=== PATIENT | female | born 1955 | race Caucasian/White ===

== ENCOUNTER 2016-11-05 14:01 | Emergency (ER) | payer OTHER ==
[~2016-11-05] VITALS: Ht 165.1 cm; Wt 63.0 kg
[~2016-11-05 14:01] MED LIST: CITA20TA5 PO; Cefpodoxime Proxetil PO; MELA10TA PO; PRED-220 PO; TRIA1TAB5 PO
[2016-11-05 14:07] VITALS: BP 165/99
[2016-11-05] MEDS ORDERED: BUPIVACAINE 0.5% 50 ML VIAL. IJ ONE (14:30)
[2016-11-05] MEDS ORDERED: HYDR-971 PO (14:53)
[2016-11-05] MEDS ORDERED: CEPH500T PO (14:53)
--- NOTE | 2016-11-05 14:54 | PHYS DOC ---
Past Medical History Past Medical History: Bipolar, Depression, Hypertension, Pneumonia Past Surgical History: Other Additional Past Surgical Histo: R rotator cuff Alcohol Use: None Drug Use: Marijuana, Other Social History Narrative: denies 11/05/16 Adult General Chief Complaint Chief Complaint: THUMB HPI HPI Patient is a 61 year old female with history of hypertension bipolar and depression who presents today requesting we remove her left thumb nail. Patient states she got injured at work on October 12, 2016. She has been following up with [facility] She states the nail on the left thumb is barely attached to the nail bed and has been catching on things that she can not use her left thumb, she is left handed and would like it removed. She states she has an appointment with [email or web address] next week but she can not wait until then. Patient states the [facility] had asked her to cut the nail back which she refused. Patient states she does have a fracture of the left thumb from the injury that was left to heal on its own she states she was provided a splint. Review of Systems Review of Systems Constitutional: Denies fever or chills [] Musculoskeletal: Left thumb nail removal request Integument: Denies rash or skin lesions [] Neurologic: Denies headache, focal weakness or sensory changes [] Endocrine: Denies polyuria or polydipsia [] Current Medications Current Medications Current Medications Medications (Trade) Dose Ordered Sig/Gonzales Start Time Stop Time Status Last Admin Dose Admin Bupivacaine HCl (Marcaine 0.5%) 50 ml 1X ONCE 11/05/16 14:30 11/05/16 14:31 DC Allergies Allergies Allergies Coded Allergies Type Severity Reaction Last Updated Verified No Known Drug Allergies 09/27/14 No Physical Exam Physical Exam Constitutional: Well developed, well nourished, no acute distress, non-toxic appearance. [] HENT: Normocephalic, atraumatic, bilateral external ears normal, oropharynx moist, no oral exudates, nose normal. [] Eyes: PERRLA, EOMI, conjunctiva normal, no discharge. [] Neck: Normal range of motion, no tenderness, supple, no stridor. [] Cardiovascular:Heart rate regular rhythm, no murmur [] Lungs & Thorax: Bilateral breath sounds clear to auscultation [] Abdomen: Bowel sounds normal, soft, no tenderness, no masses, no pulsatile masses. [] Skin: Left thumb nail is barely attached on the medial aspect of the thumb's nail bed. Most of the old is is removed completely from the nail bed. There is a new nail growing underneath the old nail. The new nail is approximately 1/3 out of the skin. Full range of motion to the left thumb including flexion and extension. +2 left radial pulse, adequate, radial sensation to the left thumb. Cap refill less than 2 seconds the left thumb Back: No tenderness, no CVA tenderness. [] Extremities: No tenderness, no cyanosis, no clubbing, ROM intact, no edema. [] Neurologic: Alert and oriented X 3, normal motor function, normal sensory function, no focal deficits noted. [] Psychologic: Affect normal, judgement normal, mood normal. [] Current Patient Data Vital Signs Vital Signs Date Time Temp Pulse Resp B/P (MAP) Pulse Ox O2 Delivery O2 Flow Rate FiO2 11/05/16 14:07 98.2 85 20 95 Room Air 98.2 EKG EKG [] Radiology/Procedures Radiology/Procedures Indication: Left thumb nail removal Procedure: Left hand was placed in appropriate position. The left thumb was cleaned with 200 ML of normal saline and 30 mL of Betadine. 0.5% of bupivacaine was used to perform a digital block successfully. The nail was successfully pulled out with Raya's forceps, the area was covered with nonstick dressing and foam splint was applied by me, neurovascular exam done by me is normal, cap refill less than 2 seconds. The patient tolerated the procedure well Complications:none Course & Med Decision Making Course & Med Decision Making Pertinent Labs and Imaging studies reviewed. (See chart for details) Patient is in the ED with request for nail removal from her left thumb after an injury on October 12, 2016 at work. Patient has been following up with [employer] at work. She has a f/u appointment next week. Patient states she can't wait until next week to have the nail removed. The old finger nail is barely attached to the nail bed. The left thumb has a new nail approximately 1/3 grown. I went ahead and removed the old nail which was barely attached to the skin. See procedure note. Tetanus is up-to-date. Discharged with cephalexin prophylaxis. Follow up with [employer] comp next week. Dragon Disclaimer Dragon Disclaimer This electronic medical record was generated, in whole or in part, using a voice recognition dictation system. Departure Departure Impression: Primary Impression: Nail avulsion, finger Disposition: 01 HOME, SELF-CARE Condition: STABLE Referrals: BENIGNO PARRA MD (PCP) follow up with your work man's comp. doctor next week Patient Instructions: Nail Avulsion Injury Additional Instructions: We removed the left thumb nail that was barely hanging on. You do have a new nail growing. Keep the area clean and dry. We put you on antibiotics prophylaxis. Take them as prescribed. Follow-up with the workman comp doctor next week. Scripts Cephalexin (CEPHALEXIN) 500 Mg Tablet 1 TAB PO QID, #40 TAB Prov: GEMINI KIDD APRN 11/05/16 Hydrocodone/Apap 5-325 (NORCO 5-325 TABLET) 1 Each Tablet 1 TAB PO Q4-6HRS Y for PAIN, #20 TAB Prov: GEMINI KIDD APRN 11/05/16 Problem Qualifiers Primary Impression: Nail avulsion, finger Encounter type: initial encounter Qualified Codes: S61.309A - Unspecified open wound of unspecified finger with damage to nail, initial encounter GEMINI KIDD APRN Nov 05, 2016 14:54
== END 2016-11-05 14:57 | disposition home or self-care (01) ==
LOC: ER 14:01
DX: S61.102A Unspecified open wound of left thumb with damage to nail, initial encounter (principal); F12.10 Cannabis abuse, uncomplicated; I10 Essential (primary) hypertension; F31.9 Bipolar disorder, unspecified; X58.XXXA Exposure to other specified factors, initial encounter; Y93.89 Activity, other specified; Y92.69 Other specified industrial and construction area as the place of occurrence of the external cause; Y99.8 Other external cause status
CPT/HCPCS: 11730; 99285; J3490

== ENCOUNTER 2018-12-01 08:59 | Inpatient (IN) | payer SELFPAY ==
[~2018-12-01] VITALS: Ht 165.1 cm; Wt 71.0 kg
[2018-12-01] VITALS (18 sets, daily range): BP systolic 107–139; BP diastolic 65–88
[~2018-12-01 08:59] MED LIST changes: +ALPR0.5T PO; +CEPH500T PO; +CITA10TA8 PO; -CITA20TA5 PO; +CITA20TA6 PO; +CYCL10TA2 PO; +DILT180C2 PO; +HYDR-3164 PO; +L.AC1CAP6 PO; +LEVO500T59 PO; +PRED20TA PO; +WARF-31 PO
[2018-12-01] MEDS ORDERED: dilTIAZem INJ 125 MG in IV DEXTROSE 5% 100ML 100 ML IV ONE (09:30)
[2018-12-01] MEDS ORDERED: ONDANSETRON PF 4 MG/2 ML VIAL. IM ONE (09:30)
[2018-12-01] MEDS ORDERED: dilTIAZem IV PUSH 25 MG/5 ML VIAL IVP ONE (09:30)
[2018-12-01] MEDS ORDERED: fentaNYL PF VIAL 100 MCG/2 ML VIAL IV ONE ×3 (09:30→10:30)
--- NOTE | 2018-12-01 09:41 | RAD ---
Examination: PORTABLE CHEST 1V History: Abdominal pain Comparison/Correlation: None Findings: Portable upright frontal view chest was obtained. Heart size is borderline but this is probably technique related. No pneumothorax. Subtle interstitial thickening of the lung decker diffusely is noted. No focal consolidation. No acute bony process. No subdiaphragmatic extraluminal gas. Impression: Decreased interstitial thickening of the lung decker is notable since the prior exam. No focal infiltrate. Electronically signed by: Wilbert Webb MD (12/01/2018 9:38 AM) [id number]
[2018-12-01 09:42] LABS: BASO # 0.1 x10^3/uL (0.0-0.2); BASO % 0 % (0-3); EOS % 0 % (0-3); HEMATOCRIT 55.2 % (36.0-47.0); HEMOGLOBIN 18.8 g/dL (12.0-15.5); LYMPH % 5 % (24-48); MEAN CORPUSCULAR HEMOGLOBIN 30 pg (25-35); MEAN CORPUSCULAR HGB CONC 34 g/dL (31-37); MEAN CORPUSCULAR VOLUME 89 fL (79-100); MONO # 1.9 x10^3/uL (0.0-1.1); MONO % 10 % (0-9); NEUT # 15.7 x10^3/uL (1.8-7.7); NEUT % 84 % (31-73); PLATELET COUNT 400 x10^3/uL (140-400); RED BLOOD COUNT 6.23 x10^6/uL (3.50-5.40); WHITE BLOOD COUNT 18.7 x10^3/uL (4.0-11.0)
[2018-12-01 09:51] LABS: CALCIUM 9.4 mg/dL (8.5-10.1); CREATININE 0.8 mg/dL (0.6-1.0); GFR 72.4; POTASSIUM 3.7 mmol/L (3.5-5.1)
[2018-12-01 09:57] LABS: PROTHROMBIN TIME PATIENT 32.6 SEC (11.7-14.0)
--- NOTE | 2018-12-01 09:57 | PHYS DOC ---
Past Medical History Past Medical History: A-Fib, CHF, COPD Past Surgical History: No Surgical History Additional Past Surgical Histo: R rotator cuff Additional Information: 2-3 CIGS/DAY Alcohol Use: None Drug Use: Marijuana Adult General Chief Complaint Chief Complaint: ABDOMINAL PAIN [facility] HPI Patient is a 63 year old female with history of atrial fibrillation who brought in by EMS because of abdominal pain. Patient complaining of constant epigastric sharp pain since yesterday and rated her pain 10 over 10 associated with nausea. Patient denies chest pain, palpitation, vomiting and diarrhea, fever and chills. Patient complaining of decrease of urine output. Patient is anxious and a poor historian. Review of Systems Review of Systems Constitutional: Denies fever or chills [] Eyes: Denies change in visual acuity, redness, or eye pain [] HENT: Denies nasal congestion or sore throat [] Respiratory: Denies cough or shortness of breath [] Cardiovascular: No additional information not addressed in HPI [] GI: Reports abdominal pain, nausea, denies vomiting, bloody stools or diarrhea [] : Denies dysuria or hematuria [] Musculoskeletal: Denies back pain or joint pain [] Integument: Denies rash or skin lesions [] Neurologic: Denies headache, focal weakness or sensory changes [] Endocrine: Denies polyuria or polydipsia [] All other systems were reviewed and found to be within normal limits, except as documented in this note. Current Medications Current Medications Allergies Allergies Allergies Coded Allergies Type Severity Reaction Last Updated Verified No Known Drug Allergies 09/27/14 No Physical Exam Physical Exam Constitutional: Well nourished, moderate distress, non-toxic appearance. [] HENT: Normocephalic, atraumatic. Eyes: PERRLA, EOMI, conjunctiva normal, no discharge. [] Neck: Normal range of motion, no tenderness, supple, no stridor. [] Cardiovascular: Irregularly irregular with tachycardia, no murmur [] Lungs & Thorax: No respiratory distress, mild rhonchi bilaterally Abdomen: Bowel sounds normal, soft, no tenderness, epigastric tenderness, no masses, no pulsatile masses. [] Skin: Warm, dry, no erythema, no rash. [] Back: No tenderness, no CVA tenderness. [] Extremities: No tenderness, no cyanosis, no clubbing, ROM intact, no edema. [] Neurologic: Alert and oriented X 3, normal motor function, normal sensory function, no focal deficits noted. [] Psychologic: Affect anxious, judgement normal, mood normal. [] Current Patient Data Vital Signs Vital Signs Date Time Temp Pulse Resp B/P (MAP) Pulse Ox O2 Delivery O2 Flow Rate FiO2 12/01/18 09:04 97.9 142 22 167/80 (109) 93 Room Air 97.9 Lab Values EKG EKG EKG interpreted by me. EKG at 0910 showed atrial fibrillation with RVR at rate of 152, poor R-wave progress in anteroseptal leads, no acute ST and T-wave abnormalities. Radiology/Procedures Radiology/Procedures [][facility] [address] [place] [address] IMAGING REPORT Signed PATIENT: DEENA VALLADARES ACCOUNT: [id number] : 1955 LOCATION: ER AGE: 63 SEX: F EXAM STATUS: REG ER ORD. PHYSICIAN: ARCELIA NYE MD REASON: abdominal pain and atrial fibrillation with RVR PROCEDURE: PORTABLE CHEST 1V Examination: PORTABLE CHEST 1V History: Abdominal pain Comparison/Correlation: None Findings: Portable upright frontal view chest was obtained. Heart size is borderline but this is probably technique related. No pneumothorax. Subtle interstitial thickening of the lung decker diffusely is noted. No focal consolidation. No acute bony process. No subdiaphragmatic extraluminal gas. Impression: Decreased interstitial thickening of the lung decker is notable since the prior exam. No focal infiltrate. Electronically signed by: Wilbert Mirza MD (12/01/2018 9:38 AM) [id number] DICTATED and SIGNED BY: WILBERT MIRZA MD DATE: 12/01/18 0938 Course & Med Decision Making Course & Med Decision Making Pertinent Labs and Imaging studies reviewed. (See chart for details) Evaluation of patient in ER showed 63-year-old female patient with complaining of epigastric pain since yesterday with nausea. Patient had atrial flutter patient is on antibiotic with history of A. fib and treated with Cardizem bolus and drip with improvement of heart rate. Patient had elevation of liver function tests and low magnesium and sodium and treated with IV magnesium and pain medication with improvement of her condition. CT abdomen and pelvis is pending with concern for possible cholecystitis. Patient requiring admission for further evaluation and treatment. Discussed with Dr. Benigno Spann who is in agreement with admission. Discussed findings and plan with patient and family, who ack nowledge understanding and agreement. Dragon Disclaimer Dragon Disclaimer This electronic medical record was generated, in whole or in part, using a voice recognition dictation system. Departure Departure Impression: Primary Impression: Atrial fibrillation with RVR Additional Impressions: Epigastric pain Elevated liver function tests Hypomagnesemia Anxiety Hyponatremia Elevated brain natriuretic peptide (BNP) level Dehydration Disposition: ADMITTED INPATIENT (at 1029) Admitting Physician: Benigno Munguia (accepted admission at 1028) Condition: IMPROVED Referrals: BENIGNO MUNGUIA MD (PCP) Critical Care Time Critical care time was 70 minutes exclusive of procedures. Problem Qualifiers ARCELIA NYE MD Dec 01, 2018 09:57
[2018-12-01 09:58] LABS: ALBUMIN 2.7 g/dL (3.4-5.0); ALBUMIN/GLOBULIN RATIO 0.5 (1.0-1.7); MAGNESIUM 1.5 mg/dL (1.8-2.4); TOTAL PROTEIN 8.3 g/dL (6.4-8.2)
[2018-12-01 10:34] LABS: PLT ESTIMATE ADEQUATE (ADEQUATE)
[2018-12-01] MEDS ORDERED: MAGNESIUM SULFATE 2GM 50 ML IV ONE (11:00)
--- NOTE | 2018-12-01 11:23 | RAD ---
EXAM: CT Abdomen and Pelvis without IV contrast CLINICAL HISTORY: Epigastric pain. COMPARISON: 06/04/2010 TECHNIQUE: Helical CT of the abdomen and pelvis without intravenous contrast. Axial, coronal and sagittal reformatted images were generated. PQRS compliance statement - One or more of the following individualized dose reduction techniques were utilized for this study: 1. Automated exposure control 2. Adjustment of the mA and/or kV according to patient size 3. Use of iterative reconstruction technique FINDINGS: Lack of intravenous contrast limits evaluation of solid organs, vasculature, and lymph nodes. Lower chest: A few scattered groundglass foci in the lung bases may represent atelectasis although atypical infection would have similar appearance. Calcified granuloma right lung base Abdomen and Pelvis: No focal liver lesion. There is marked distention of the gallbladder measuring up to 5.6 cm transverse with pericholecystic fluid or wall thickening consistent with acute cholecystitis. No intrahepatic or extrahepatic biliary ductal dilatation is identified. Pancreas is grossly unremarkable. Spleen is normal in appearance. Left adrenal nodule measures approximately 2.5 cm, 13 Hounsfield units likely lipid rich adenoma. Right adrenal gland is unremarkable. 7 mm left interpolar renal lesion measures fluid density likely cystic. Left upper pole renal cystic lesion measures 9 mm. No hydronephrosis. Bladder is unremarkable. Moderate colonic stool content is seen in the right colon. No small or large bowel dilatation. Colonic diverticulosis without evidence for acute diverticulitis. No abdominal or pelvic ascites. No abdominal or pelvic lymphadenopathy by size criteria although a few prominent iliac chain lymph nodes are seen. Dense atherosclerotic calcifications of aorta are seen. Bones: Degenerative changes of the spine are seen. IMPRESSION: 1. Acute cholecystitis. 2. Minimal groundglass opacities in the lung bases may represent atelectasis or atypical infectious or inflammatory process. 3. Left adrenal nodule may represent lipid rich adenoma, although measures marginally greater than expected by Hounsfield units. Electronically signed by: Marlo Silva MD (12/01/2018 11:20 AM) [facility]
--- NOTE | 2018-12-01 11:40 | EKG ---
[facility] [address] [place] [address] Test Date: 2018-12-01 Test Time: 09:10:27 Pat Name: DEENA VALLADARES Department: Room: Gender: F Claim Inspector: : 1955 Requested By: ARCELIA NYE Order Number: [id number] Reading MD: Measurements Intervals [place] Rate: 152 P: TN: QRS: 33 QRSD: 90 T: 65 QT: 306 QTc: 494 Interpretive Statements IRREGULAR RHYTHM, NO P-WAVE FOUND ST & T ABNORMALITY, CONSIDER ANTEROLATERAL ISCHEMIA OR LEFT VENTRICULAR STRAIN ABNORMAL ECG RI6.01 No previous ECG available for comparison
--- NOTE | 2018-12-01 13:01 | PDOC2 ---
[facility]CR[facility]IA [facility] ASSOC[facility]ATE 12/01/18 1301: CONSULT Date of Consult Date of Consult DATE: 12/01/18 TIME: 12:53 Reason for Consult Reason for Consult: acute cholecystitis Referring Physician Referring Physician: ER Identification/Chief Complaint Chief Complaint abdominal pain Source Source: Chart review, Patient History of Present Illness Reason for Visit: reports 2 days of epigastric pain, pain radiates to back. She has not been eating, however has had nausea. No emesis. No similar pain in past. Her recently and has been having a hard time. She was recently an inpt for CHF, Afib She is on coumadin, currently on a Cardizem drip COPD hx, continues to smoke Past Medical History Cardiovascular: AFIB, CHF Pulmonary: COPD Past Surgical History Past Surgical History: No pertinent history Social History <1 pack per day ALCOHOL: none Drugs: None Lives: Alone Current Problem List Problem List Problems Medical Problems: (1) Anxiety Status: Acute (2) Atrial fibrillation with RVR Status: Acute (3) Dehydration Status: Acute (4) Elevated brain natriuretic peptide (BNP) level Status: Acute (5) Elevated liver function tests Status: Acute (6) Epigastric pain Status: Acute (7) Hypomagnesemia Status: Acute (8) Hyponatremia Status: Acute Current Medications Current Medications Current Medications Diltiazem HCl (Cardizem Iv Push) 20 mg 1X ONCE IVP Last administered on 12/01/18at 09:34; Start 12/01/18 at 09:30; Stop 12/01/18 at 09:31; Status DC Diltiazem HCl 125 mg/Dextrose 125 ml @ 10 mls/hr 1X ONCE IV Last administered on 12/01/18at 09:41; Start 12/01/18 at 09:30; Stop 12/01/18 at 21:59 Fentanyl Citrate (Fentanyl 2ml Vial) 50 mcg 1X ONCE IV Last administered on 12/01/18at 09:31; Start 12/01/18 at 09:30; Stop 12/01/18 at 09:33; Status DC Ondansetron HCl (Zofran) 4 mg 1X ONCE IM Last administered on 12/01/18at 09:30; Start 12/01/18 at 09:30; Stop 12/01/18 at 09:31; Status DC Fentanyl Citrate (Fentanyl 2ml Vial) 50 mcg 1X ONCE IV Last administered on 12/01/18at 09:40; Start 12/01/18 at 09:45; Stop 12/01/18 at 09:46; Status DC Magnesium Sulfate 50 ml @ 25 mls/hr 1X ONCE IV Last administered on 12/01/18at 10:44; Start 12/01/18 at 11:00; Stop 12/01/18 at 12:59 Fentanyl Citrate (Fentanyl 2ml Vial) 50 mcg 1X ONCE IV Last administered on 12/01/18at 10:44; Start 12/01/18 at 10:30; Stop 12/01/18 at 10:31; Status DC Piperacillin Sod/ Tazobactam Sod 3.375 gm/Sodium Chloride 50 ml @ 100 mls/hr Q6HRS IV ; Start 12/01/18 at 18:00; Status UNV Active Scripts Active Reported Prednisone 20 Mg Tablet 40 Mg PO DAILY Levaquin (Levofloxacin) 500 Mg Tablet 500 Mg PO DAILY Cardizem Cd (Diltiazem Hcl) 180 Mg Cap.er.24h 120 Mg PO DAILY Warfarin Sodium 5 Mg Tablet 5 Mg PO DAILY Probiotic (L.acidoph & Paracasei,B.lactis) 1 Each Capsule 1 Each PO DAILY Cyclobenzaprine Hcl 10 Mg Tablet 10 Mg PO TID Celexa (Citalopram Hydrobromide) 10 Mg Tablet 10 Mg PO DAILY Xanax (Alprazolam) 0.5 Mg Tablet 0.5 Mg PO PRN Q8HRS PRN Allergies Allergies: Coded Allergies: No Known Drug Allergies (Unverified , 09/27/14) ROS General: YES: Chills, Fatigue PSYCHOLOGICAL ROS: YES: Depression; No: Anxiety Eyes: No Blurry vision, No Double vision HEENT: No: Heacaches, Sore Throat Hematological and Lymphatic: YES: Bleeding Problems; No: Blood Clots Respiratory: YES: Shortness of breath; No: Cough Cardiovascular: No Chest Pain, No Palpitations Gastrointestinal: Yes Other (see hpi) Genitourinary: No Dysuria, No Hematuria Musculoskeletal: No Joint Pain, No Muscle Pain Neurological: No Confusion, No Impaired Coord/balance Skin: No Pruritus, No Rash Physical Exam General: Alert, Oriented X3, Cooperative, No acute distress HEENT: PERRLA, Mucous membr. moist/pink Lungs: Other (diminished ) Heart: Other (tachy, afib) Abdomen: Soft, Other (moderate ttp epigastric, RUQ) Extremities: No clubbing, No cyanosis Skin: No rashes, No breakdown Neuro: Normal gait, Normal speech Psych/Mental Status: Mental status NL, Mood NL MUSCULOSKELETAL: No deformity, No swelling Vitals VITALS Vital Signs Date Time Temp Pulse Resp B/P (MAP) Pulse Ox O2 Delivery O2 Flow Rate FiO2 12/01/18 11:20 97.6 117 22 119/88 (98) 95 Nasal Cannula 2.0 97.6 Labs Labs Laboratory Tests Test 12/01/18 09:30 White Blood Count 18.7 x10^3/uL (4.0-11.0) Red Blood Count 6.23 x10^6/uL (3.50-5.40) Hemoglobin 18.8 g/dL (12.0-15.5) Hematocrit 55.2 % (36.0-47.0) Mean Corpuscular Volume 89 fL (79-100) Mean Corpuscular Hemoglobin 30 pg (25-35) Mean Corpuscular Hemoglobin Concent 34 g/dL (31-37) Red Cell Distribution Width 17.0 % (11.5-14.5) Platelet Count 400 x10^3/uL (140-400) Neutrophils (%) (Auto) 84 % (31-73) Lymphocytes (%) (Auto) 5 % (24-48) Monocytes (%) (Auto) 10 % (0-9) Eosinophils (%) (Auto) 0 % (0-3) Basophils (%) (Auto) 0 % (0-3) Neutrophils # (Auto) 15.7 x10^3/uL (1.8-7.7) Lymphocytes # (Auto) 1.0 x10^3/uL (1.0-4.8) Monocytes # (Auto) 1.9 x10^3/uL (0.0-1.1) Eosinophils # (Auto) 0.0 x10^3/uL (0.0-0.7) Basophils # (Auto) 0.1 x10^3/uL (0.0-0.2) Platelet Estimate Adequate (ADEQUATE) Prothrombin Time 32.6 SEC (11.7-14.0) Prothromb Time International Ratio 3.2 (0.8-1.1) Sodium Level 132 mmol/L (136-145) Potassium Level 3.7 mmol/L (3.5-5.1) Chloride Level 93 mmol/L (98-107) Carbon Dioxide Level 29 mmol/L (21-32) Anion Gap 10 (6-14) Blood Urea Nitrogen 27 mg/dL (7-20) Creatinine 0.8 mg/dL (0.6-1.0) Estimated GFR (Cockcroft-Gault) 72.4 BUN/Creatinine Ratio 34 (6-20) Glucose Level 141 mg/dL (70-99) Calcium Level 9.4 mg/dL (8.5-10.1) Magnesium Level 1.5 mg/dL (1.8-2.4) Total Bilirubin 1.0 mg/dL (0.2-1.0) Aspartate Amino Transf (AST/SGOT) 77 U/L (15-37) Alanine Aminotransferase (ALT/SGPT) 133 U/L (14-59) Alkaline Phosphatase 165 U/L (46-116) Creatine Kinase 25 U/L (26-192) Troponin I Quantitative < 0.017 ng/mL (0.000-0.055) UU-Fhf-N-Type Natriuretic Peptide 3368 pg/mL (0-124) Total Protein 8.3 g/dL (6.4-8.2) Albumin 2.7 g/dL (3.4-5.0) Albumin/Globulin Ratio 0.5 (1.0-1.7) Lipase 58 U/L (73-393) Laboratory Tests Test 12/01/18 09:30 White Blood Count 18.7 x10^3/uL (4.0-11.0) Red Blood Count 6.23 x10^6/uL (3.50-5.40) Hemoglobin 18.8 g/dL (12.0-15.5) Hematocrit 55.2 % (36.0-47.0) Mean Corpuscular Volume 89 fL (79-100) Mean Corpuscular Hemoglobin 30 pg (25-35) Mean Corpuscular Hemoglobin Concent 34 g/dL (31-37) Red Cell Distribution Width 17.0 % (11.5-14.5) Platelet Count 400 x10^3/uL (140-400) Neutrophils (%) (Auto) 84 % (31-73) Lymphocytes (%) (Auto) 5 % (24-48) Monocytes (%) (Auto) 10 % (0-9) Eosinophils (%) (Auto) 0 % (0-3) Basophils (%) (Auto) 0 % (0-3) Neutrophils # (Auto) 15.7 x10^3/uL (1.8-7.7) Lymphocytes # (Auto) 1.0 x10^3/uL (1.0-4.8) Monocytes # (Auto) 1.9 x10^3/uL (0.0-1.1) Eosinophils # (Auto) 0.0 x10^3/uL (0.0-0.7) Basophils # (Auto) 0.1 x10^3/uL (0.0-0.2) Platelet Estimate Adequate (ADEQUATE) Prothrombin Time 32.6 SEC (11.7-14.0) Prothromb Time International Ratio 3.2 (0.8-1.1) Sodium Level 132 mmol/L (136-145) Potassium Level 3.7 mmol/L (3.5-5.1) Chloride Level 93 mmol/L (98-107) Carbon Dioxide Level 29 mmol/L (21-32) Anion Gap 10 (6-14) Blood Urea Nitrogen 27 mg/dL (7-20) Creatinine 0.8 mg/dL (0.6-1.0) Estimated GFR (Cockcroft-Gault) 72.4 BUN/Creatinine Ratio 34 (6-20) Glucose Level 141 mg/dL (70-99) Calcium Level 9.4 mg/dL (8.5-10.1) Magnesium Level 1.5 mg/dL (1.8-2.4) Total Bilirubin 1.0 mg/dL (0.2-1.0) Aspartate Amino Transf (AST/SGOT) 77 U/L (15-37) Alanine Aminotransferase (ALT/SGPT) 133 U/L (14-59) Alkaline Phosphatase 165 U/L (46-116) Creatine Kinase 25 U/L (26-192) Troponin I Quantitative < 0.017 ng/mL (0.000-0.055) KB-Zuo-W-Type Natriuretic Peptide 3368 pg/mL (0-124) Total Protein 8.3 g/dL (6.4-8.2) Albumin 2.7 g/dL (3.4-5.0) Albumin/Globulin Ratio 0.5 (1.0-1.7) Lipase 58 U/L (73-393) Assessment/Plan Assessment/Plan abdominal pain, CT concerning for acute cholecystitis Significant cardiac hx--afib, currently on a Cardizem drip Coumadin, INR 3.2 COPD CHF--BNP elevated will continue NPO, bowel rest, start IV abx for acute cholecystitis will consult cardiology and pulmonary for preop defer reversal of Coumadin to cards/PCP reviewed with danielito Shane when medically stable ALLEN KILGORE MD 12/02/18 0214: CONSULT Assessment/Plan Assessment/Plan Agree with above, reverse anticoagulation, LUCRETIA Perla APRN Dec 01, 2018 13:01 ALLEN KILGORE MD Dec 02, 2018 02:14
[2018-12-01] MEDS: PIPERACILLIN/TAZOBACTAM 3.375 GM in IV NORMAL SALINE 50ML 50 ML IV SCH ×3 (13:50→23:03)
--- NOTE | 2018-12-01 14:12 | PDOC2 ---
CARDIAC CONSULT DATE OF CONSULT Date of Consult DATE: 12/01/18 TIME: 14:07 REASON FOR CONSULT Reason for Consult: CHF, AFIB REFERRING PHYSICIAN Referring Physician: Pablo SOURCE Source: Chart review, Patient HISTORY OF PRESENT ILLNESS HISTORY OF PRESENT ILLNESS This is a pleasant 63 yo female admitted for complains of abdominal pain. In the last 3 days she has been having abdominal pain more so to her right side. S he has been having sharp discomfort and has been having nausea and vomiting 3 x in a day the most. Her appetite has been significantly decreased. She has been taking her cardizem at home and coumadin. She is significant for severe . Upon admission she was noted with AFIB RVR and has been placed on cardizem drip. No chest pain, passing out, SOA. Has been feeling her heart beating fast. Has not been able to ingest anything because of her pain. PAST MEDICAL HISTORY Cardiovascular: AFIB, CHF, HTN Pulmonary: COPD CENTRAL NERVOUS SYSTEM: Other (No pertinent history) GI: No pertinent hx Heme/Onc: Other (chronic anticoagulation) Musculoskeletal: Osteoarthritis Rheumatologic: No pertinent hx Infectious disease: No pertinent hx ENT: No pertinent hx Renal/: No pertinent hx Endocrine: No pertinent hx Dermatology: No pertinent hx PAST SURGICAL HISTORY Past Surgical History: Other (RTC repair) FAMILY HISTORY Family History: Diabetes, Heart Disease (father) SOCIAL HISTORY Smoke: <1 pack per day ALCOHOL: none Drugs: None Lives: with Family (recently ) CURRENT MEDICATIONS CURRENT MEDICATIONS Current Medications Medications (Trade) Dose Ordered Sig/Gonzales Route PRN Reason Start Time Stop Time Status Last Admin Dose Admin Diltiazem HCl (Cardizem Iv Push) 20 mg 1X ONCE IVP 12/01/18 09:30 12/01/18 09:31 DC 12/01/18 09:34 Diltiazem HCl 125 mg/Dextrose 125 ml @ 10 mls/hr 1X ONCE IV 12/01/18 09:30 12/01/18 21:59 12/01/18 09:41 Fentanyl Citrate (Fentanyl 2ml Vial) 50 mcg 1X ONCE IV 12/01/18 09:30 12/01/18 09:33 DC 12/01/18 09:31 Ondansetron HCl (Zofran) 4 mg 1X ONCE IM 12/01/18 09:30 12/01/18 09:31 DC 12/01/18 09:30 Fentanyl Citrate (Fentanyl 2ml Vial) 50 mcg 1X ONCE IV 12/01/18 09:45 12/01/18 09:46 DC 12/01/18 09:40 Magnesium Sulfate 50 ml @ 25 mls/hr 1X ONCE IV 12/01/18 11:00 12/01/18 12:59 DC 12/01/18 10:44 Fentanyl Citrate (Fentanyl 2ml Vial) 50 mcg 1X ONCE IV 12/01/18 10:30 12/01/18 10:31 DC 12/01/18 10:44 Piperacillin Sod/ Tazobactam Sod 3.375 gm/Sodium Chloride 50 ml @ 100 mls/hr Q6HRS IV 12/01/18 13:00 12/01/18 13:50 ALLERGIES ALLERGIES: Coded Allergies: No Known Drug Allergies (Unverified , 09/27/14) ROS Review of System 14 point ROS evaluated with pertinent positives noted per HPI PHYSICAL EXAM General: Alert, Oriented X3, Cooperative, No acute distress HEENT: Atraumatic, Mucous membr. moist/pink Lungs: Other (diminished throughout) Heart: Other (AFIB; 4/6 systolic murmur to CHERI border) Abdomen: Soft, No tenderness Extremities: No cyanosis, No edema Skin: No breakdown, No significant lesion Neuro: Normal speech, Sensation intact Psych/Mental Status: Mental status NL, Mood NL MUSCULOSKELETAL: Osteoarthritic changes both hands VITALS/I&O VITALS/I&O: Vital Signs Date Time Temp Pulse Resp B/P (MAP) Pulse Ox O2 Delivery O2 Flow Rate FiO2 12/01/18 11:30 Nasal Cannula 2.0 12/01/18 11:20 97.6 117 22 119/88 (98) 95 97.6 LABS Lab: Laboratory Tests Test 12/01/18 09:30 White Blood Count 18.7 x10^3/uL (4.0-11.0) H Red Blood Count 6.23 x10^6/uL (3.50-5.40) H Hemoglobin 18.8 g/dL (12.0-15.5) H Hematocrit 55.2 % (36.0-47.0) H Mean Corpuscular Volume 89 fL (79-100) Mean Corpuscular Hemoglobin 30 pg (25-35) Mean Corpuscular Hemoglobin Concent 34 g/dL (31-37) Red Cell Distribution Width 17.0 % (11.5-14.5) H Platelet Count 400 x10^3/uL (140-400) Neutrophils (%) (Auto) 84 % (31-73) H Lymphocytes (%) (Auto) 5 % (24-48) L Monocytes (%) (Auto) 10 % (0-9) H Eosinophils (%) (Auto) 0 % (0-3) Basophils (%) (Auto) 0 % (0-3) Neutrophils # (Auto) 15.7 x10^3/uL (1.8-7.7) H Lymphocytes # (Auto) 1.0 x10^3/uL (1.0-4.8) Monocytes # (Auto) 1.9 x10^3/uL (0.0-1.1) H Eosinophils # (Auto) 0.0 x10^3/uL (0.0-0.7) Basophils # (Auto) 0.1 x10^3/uL (0.0-0.2) Platelet Estimate Adequate (ADEQUATE) Prothrombin Time 32.6 SEC (11.7-14.0) H Prothrombin Time INR 3.2 (0.8-1.1) H Sodium Level 132 mmol/L (136-145) L Potassium Level 3.7 mmol/L (3.5-5.1) Chloride Level 93 mmol/L (98-107) L Carbon Dioxide Level 29 mmol/L (21-32) Anion Gap 10 (6-14) Blood Urea Nitrogen 27 mg/dL (7-20) H Creatinine 0.8 mg/dL (0.6-1.0) Estimated GFR (Cockcroft-Gault) 72.4 BUN/Creatinine Ratio 34 (6-20) H Glucose Level 141 mg/dL (70-99) H Calcium Level 9.4 mg/dL (8.5-10.1) Magnesium Level 1.5 mg/dL (1.8-2.4) L Total Bilirubin 1.0 mg/dL (0.2-1.0) Aspartate Amino Transferase (AST) 77 U/L (15-37) H Alanine Aminotransferase (ALT) 133 U/L (14-59) H Alkaline Phosphatase 165 U/L (46-116) H Creatine Kinase 25 U/L (26-192) L Troponin I Quantitative < 0.017 ng/mL (0.000-0.055) JI-Fzt-T-Type Natriuretic Peptide 3368 pg/mL (0-124) H Total Protein 8.3 g/dL (6.4-8.2) H Albumin 2.7 g/dL (3.4-5.0) L Albumin/Globulin Ratio 0.5 (1.0-1.7) L Lipase 58 U/L (73-393) L Laboratory Tests 12/01/18 09:30 Laboratory Tests 12/01/18 09:30 ECHOCARDIOGRAM ECHOCARDIOGRAM <Conclusion> The left ventricular systolic function is normal and the ejection fraction is within normal range. The Ejection Fraction is 50-55%. Calculated aortic valve area is .95 cm2 with maximum pressure gradient of 57 mmHg and mean pressure gradient of 33 mmHg. Due to afib, the gradient is difficult to calculate but there is likely severe aortic stenosis. Doppler and Color-flow revealed moderate mitral regurgitation. DATE: 10/30/181458 ASSESSMENT/PLAN ASSESSMENT/PLAN 1. Abd pain with acute cholecystitis: general surgery following 2. AFIB RVR: cardizem drip. on coumadin. Precipitated by F&E imbalance and GB issue 3. COPD with continued tobaccoism 4. Severe 5. Chronic diastolic CHF: compensated 6. Polycythemia 7. Hypomagnesemia Recommendations 1. Continue cardizem drip while NPO. IV digoxin x1. Replace Mg. 2. Currently trying to self convert to MAT. Continue current regimen and if becomes refractory and fails to convert then may consider amiodarone drip. 3. DC coumadin and start on heparin drip once INR below 2 4. Smoking cessation 5. Supportive care, will address as an outpt. 6. Encouraged to follow up in office. PHILLY GRANADOS APRN Dec 01, 2018 14:12
[2018-12-01] MEDS ORDERED: DIGOXIN IV 500 MCG/2 ML AMPUL. IV ONE (15:00)
[2018-12-01] MEDS ORDERED: PHYTONADIONE 10 MG/ML AMPUL. SQ ONE (18:00)
[2018-12-01] MEDS ORDERED: ONDANSETRON PF 4 MG/2 ML VIAL. IV PRN (18:00)
[2018-12-01] MEDS: IV DEXTROSE 5%-LACT RINGERS 1,000 ML IV SCH ×2 (18:19→19:21)
[2018-12-01] MEDS: fentaNYL PF VIAL 100 MCG/2 ML VIAL IV PRN (18:20)
[2018-12-01] MEDS: ALPRAZolam 0.5 MG TABLET PO PRN (19:20)
[2018-12-01] MEDS: dilTIAZem INJ 125 MG in IV DEXTROSE 5% 100ML 100 ML IV PRN ×2 (19:22→23:04)
[2018-12-02] VITALS (17 sets, daily range): BP systolic 99–134; BP diastolic 57–77
[2018-12-02] MEDS: fentaNYL PF VIAL 100 MCG/2 ML VIAL IV PRN ×6 (02:52→20:46)
[2018-12-02] MEDS: PIPERACILLIN/TAZOBACTAM 3.375 GM in IV NORMAL SALINE 50ML 50 ML IV SCH ×3 (04:06→17:11)
[2018-12-02] MEDS: dilTIAZem INJ 125 MG in IV DEXTROSE 5% 100ML 100 ML IV PRN (04:07)
[2018-12-02 04:54] LABS: BILIRUBIN,URINE NEGATIVE (NEG); CLARITY,URINE CLEAR; COLOR,URINE YELLOW; NITRITE,URINE NEGATIVE (NEG); PH,URINE 6.5; PROTEIN,URINE 100 mg/dL (NEG-TRACE)
[2018-12-02 05:21] LABS: BACTERIA,URINE FEW /HPF (0-FEW); SQUAMOUS EPITHELIAL CELL,UR FEW /LPF
[2018-12-02 05:33] LABS: PROTHROMBIN TIME PATIENT 28.9 SEC (11.7-14.0)
--- NOTE | 2018-12-02 10:17 | HP ---
ADMIT DATE: 12/01/2018 CHIEF COMPLAINT AND HISTORY OF PRESENT ILLNESS: This is a 63-year-old white female, patient of Dr. Sascha Munguia, with longstanding history of atrial fibrillation, on warfarin, was brought in by EMS to the Emergency Room because of abdominal pain. The patient had been having several days of severe pain, not eating for up to a week. She was nauseated with it. She denied any chest pain, vomiting, diarrhea, fevers, chills or feeling that she had any underlying tachycardia. She was found to have an acute cholecystitis and admitted for the same. PAST MEDICAL HISTORY: Remarkable for AFib. She has a history of congestive heart failure, COPD, listed history of aortic stenosis. PAST SURGICAL HISTORY: Remarkable for right rotator cuff surgery. SOCIAL HISTORY: She is a nondrinker, does smoke 2-3 cigarettes per day and uses marijuana. She recently lost her in the last month or so. MEDICATIONS: Brought with the patient, listed on the computer and have been addressed. ALLERGIES: She has no known drug allergies. REVIEW OF SYSTEMS: Remarkable for the abdominal pain, no appetite, nausea. She does feel somewhat better this morning with pain meds and IV fluids as well as IV antibiotics. PHYSICAL EXAMINATION: GENERAL: She is a well-developed, well-nourished white female, who appears somewhat ill. VITAL SIGNS: Stable and she is afebrile since admission. HEAD, EYES, EARS, NOSE AND THROAT: Unremarkable. There is no jaundice. NECK: Supple, without any thyromegaly. CHEST: Reveals diffuse bilateral wheezes. HEART: Irregularly irregular with a rate of 80, currently on a Cardizem drip after initially having AFib with a rapid ventricular response. ABDOMEN: Reveals right upper quadrant tenderness. EXTREMITIES: Without cyanosis, clubbing or edema. NEUROLOGICAL: She is intact. LABORATORY DATA: The initial heart rate was 142 on admission and in atrial fibrillation with rapid ventricular response; currently is again in AFib, but a controlled rate on a Cardizem drip. White count was 18,700 with left shift. Sodium was 132. Renal function was within normal limits. Liver function tests are somewhat elevated with alkaline phosphatase of 165, ALT of 133, AST of 77. BNP was elevated at 3368. Troponin was negative. Albumin was depressed at 2.7. Urinalysis showed no evidence of urinary tract infection. Initial INR was 3.2 and is down to 2.7 this morning. IMPRESSION: 1. Acute cholecystitis. 2. Atrial fibrillation, chronic, with rapid ventricular response on admission with anticoagulation ongoing. 3. Hyponatremia. 4. Hypomagnesemia. 5. Elevated liver function tests. 6. Elevated BNP. PLAN: The patient has been admitted. Antibiotics will be continued. Surgery, Cardiology have been consulted as well as Pulmonary. Once surgery is comfortable from an anticoagulation standpoint, she is probably ready for surgery. She is currently n.p.o. TALA PHILLIPS MD DR: BRIAN/samson JOB#: [id number] / [id number]
--- NOTE | 2018-12-02 10:21 | CONS ---
DATE OF CONSULTATION: PULMONARY CONSULTATION ATTENDING PHYSICIAN: Dr. Sascha Munguia. REASON FOR CONSULTATION: Chronic obstructive pulmonary disease. HISTORY OF PRESENT ILLNESS: The patient is a 63-year-old who has history of tobacco use for 50 years. She uses oxygen p.r.n. She says she had black mold in her carpet which is 20 years old and since she removed the carpet, her oxygen needs got better. She presented to the hospital complaining of abdominal pain, which was more on the right upper quadrant area. She has some nausea and vomiting as well. She denies any shortness of breath. She does have a cough with light yellow sputum production. The patient has history of severe aortic stenosis and also was noted to be on atrial fibrillation with RVR. The patient's chest x-ray showed mild congestive heart failure. I also noted that she was getting IV fluids. I have been asked to see her for further evaluation. PAST MEDICAL HISTORY: History of atrial fibrillation, CHF, hypertension, history of COPD, 1 pack per day for 50 years. History of chronic anticoagulation. History of osteoarthritis. PAST SURGICAL HISTORY: RTC repair. FAMILY HISTORY: Diabetes and heart disease. SOCIAL HISTORY: Smoker, down to 2 cigarettes a day, but has been a smoker for 50 years. REVIEW OF SYSTEMS: Twelve-point system obtained. Pertinent positives discussed in my history of present illness, otherwise noncontributory. All systems that were negative were reviewed as well. MEDICATIONS: Reviewed as listed in the MRAD including Zosyn and she received magnesium and diltiazem. PHYSICAL EXAMINATION: VITAL SIGNS: Reviewed. Pulse ox 92% on 2 liters. NECK: Supple. LUNGS: With faint bilateral expiratory wheezes. CARDIOVASCULAR: Irregular rate and rhythm. ABDOMEN: Soft. There is right upper quadrant pain to palpation on abdominal exam. EXTREMITIES: With no pitting edema. LABORATORY DATA: Reviewed. White cell count 18.7, hemoglobin 18.8 and platelets are 400. BUN 27, creatinine 0.8. ProBNP 3368. Albumin 2.7. CT abdomen and pelvis showed acute cholecystitis. There is minimal ground glass opacities at the bases, likely representing atelectasis. There was a left adrenal nodule consistent with adenoma. IMPRESSION: 1. Acute hypoxic respiratory failure in a patient who has been a smoker for 50 years and now has mild bronchospasm. This could be related to acute exacerbation of chronic obstructive pulmonary disease versus cardiac asthma since she is in mild congestive heart failure and has atrial fibrillation with rapid ventricular response, present on admission. 2. Previous abnormal echo with severe aortic stenosis and moderate mitral regurgitation, which both are risk factors for congestive heart failure. 3. A 50 years of tobacco use, suspect underlying chronic obstructive pulmonary disease. 4. Acute cholecystitis. 5. Moderate protein-calorie malnutrition. 6. Leukocytosis secondary to acute cholecystitis. RECOMMENDATIONS: 1. Discussed with the patient, it is very important that we control the wheezing before she goes for surgery. I have stopped the IV fluids. I am ordering another chest x-ray. If the x-ray shows persistent CHF or any worsening, then she would need Lasix. 2. Add DuoNebs. 3. Add Pulmicort nebs. 4. Add low dose Solu-Medrol. 5. Follow Cardiology recommendation. 6. Follow General Surgery recommendations. 7. Empiric antibiotics. She does have a cough with light yellow sputum production, likely has acute bronchitis. She was started on Zosyn. 8. We will follow along with you. Discussed with RN. THEODORA MASON MD DR: HUAN/samson JOB#: [id number] / [id number]
[2018-12-02] MEDS ORDERED: FUROSEMIDE 20 MG/2 ML VIAL. IVP ONE ×2 (10:30→21:00)
[2018-12-02] MEDS: ALPRAZolam 0.5 MG TABLET PO PRN ×3 (10:30→20:45)
[2018-12-02] MEDS: IPRATRPIUM/ALBUTEROL 0.5/2.5MG 3 ML NEBU. NEB SCH ×3 (12:07→21:33)
[2018-12-02] MEDS: BUDESONIDE 0.5 MG/2 ML NEBU. NEB SCH ×2 (12:07→21:34)
--- NOTE | 2018-12-02 12:58 | PDOC ---
PROGRESS NOTES Subjective Subjective ongoing severe pain Objective Objective Vital Signs Date Time Temp Pulse Resp B/P (MAP) Pulse Ox O2 Delivery O2 Flow Rate FiO2 12/02/18 12:07 92 Nasal Cannula 2.0 12/02/18 11:00 96.5 88 18 117/77 (90) 96.5 Intake and Output 12/02/18 07:00 Intake Total 1732 ml Output Total 1 ml Balance 1731 ml Intake Oral 300 ml Other 1432 ml Output Urine Total 1 ml # Voids 2 Physical Exam Abdomen: Soft (tender in RUQ) Heart: Regular rate Extremities: No clubbing, No cyanosis HEENT: Atraumatic Lungs: Clear to auscultation Assessment Assessment Problems Medical Problems: (1) Anxiety Status: Acute (2) Atrial fibrillation with RVR Status: Acute (3) Dehydration Status: Acute (4) Elevated brain natriuretic peptide (BNP) level Status: Acute (5) Elevated liver function tests Status: Acute (6) Epigastric pain Status: Acute (7) Hypomagnesemia Status: Acute (8) Hyponatremia Status: Acute Plan Plan of Care try to reverse more quickly with FFP, poss lap yessica in AM Comment Review of Relevant I have reviewed the following items sherly (where applicable) has been applied. Labs Laboratory Tests Test 12/01/18 09:30 12/02/18 04:15 12/02/18 04:25 White Blood Count 18.7 x10^3/uL (4.0-11.0) Red Blood Count 6.23 x10^6/uL (3.50-5.40) Hemoglobin 18.8 g/dL (12.0-15.5) Hematocrit 55.2 % (36.0-47.0) Mean Corpuscular Volume 89 fL (79-100) Mean Corpuscular Hemoglobin 30 pg (25-35) Mean Corpuscular Hemoglobin Concent 34 g/dL (31-37) Red Cell Distribution Width 17.0 % (11.5-14.5) Platelet Count 400 x10^3/uL (140-400) Neutrophils (%) (Auto) 84 % (31-73) Lymphocytes (%) (Auto) 5 % (24-48) Monocytes (%) (Auto) 10 % (0-9) Eosinophils (%) (Auto) 0 % (0-3) Basophils (%) (Auto) 0 % (0-3) Neutrophils # (Auto) 15.7 x10^3/uL (1.8-7.7) Lymphocytes # (Auto) 1.0 x10^3/uL (1.0-4.8) Monocytes # (Auto) 1.9 x10^3/uL (0.0-1.1) Eosinophils # (Auto) 0.0 x10^3/uL (0.0-0.7) Basophils # (Auto) 0.1 x10^3/uL (0.0-0.2) Platelet Estimate Adequate (ADEQUATE) Prothrombin Time 32.6 SEC (11.7-14.0) 28.9 SEC (11.7-14.0) Prothromb Time International Ratio 3.2 (0.8-1.1) 2.7 (0.8-1.1) Sodium Level 132 mmol/L (136-145) Potassium Level 3.7 mmol/L (3.5-5.1) Chloride Level 93 mmol/L (98-107) Carbon Dioxide Level 29 mmol/L (21-32) Anion Gap 10 (6-14) Blood Urea Nitrogen 27 mg/dL (7-20) Creatinine 0.8 mg/dL (0.6-1.0) Estimated GFR (Cockcroft-Gault) 72.4 BUN/Creatinine Ratio 34 (6-20) Glucose Level 141 mg/dL (70-99) Calcium Level 9.4 mg/dL (8.5-10.1) Magnesium Level 1.5 mg/dL (1.8-2.4) Total Bilirubin 1.0 mg/dL (0.2-1.0) Aspartate Amino Transf (AST/SGOT) 77 U/L (15-37) Alanine Aminotransferase (ALT/SGPT) 133 U/L (14-59) Alkaline Phosphatase 165 U/L (46-116) Creatine Kinase 25 U/L (26-192) Troponin I Quantitative < 0.017 ng/mL (0.000-0.055) QY-[id number]-T-Type Natriuretic Peptide 3368 pg/mL (0-124) Total Protein 8.3 g/dL (6.4-8.2) Albumin 2.7 g/dL (3.4-5.0) Albumin/Globulin Ratio 0.5 (1.0-1.7) Lipase 58 U/L (73-393) Urine Collection Type Void Urine Color Yellow Urine Clarity Clear Urine pH 6.5 Urine Specific [place] 1.020 Urine Protein 100 mg/dL (NEG-TRACE) Urine Glucose (UA) Negative mg/dL (NEG) Urine Ketones (Stick) Negative mg/dL (NEG) Urine Blood Moderate (NEG) Urine Nitrite Negative (NEG) Urine Bilirubin Negative (NEG) Urine Urobilinogen Dipstick 1.0 mg/dL (0.2 mg/dL) Urine Leukocyte Esterase Negative (NEG) Urine RBC 6-10 /HPF (0-2) Urine WBC 1-4 /HPF (0-4) Urine Squamous Epithelial Cells Few /LPF Urine Bacteria Few /HPF (0-FEW) Laboratory Tests Test 12/02/18 04:15 12/02/18 04:25 Urine Collection Type Void Urine Color Yellow Urine Clarity Clear Urine pH 6.5 Urine Specific [place] 1.020 Urine Protein 100 mg/dL (NEG-TRACE) Urine Glucose (UA) Negative mg/dL (NEG) Urine Ketones (Stick) Negative mg/dL (NEG) Urine Blood Moderate (NEG) Urine Nitrite Negative (NEG) Urine Bilirubin Negative (NEG) Urine Urobilinogen Dipstick 1.0 mg/dL (0.2 mg/dL) Urine Leukocyte Esterase Negative (NEG) Urine RBC 6-10 /HPF (0-2) Urine WBC 1-4 /HPF (0-4) Urine Squamous Epithelial Cells Few /LPF Urine Bacteria Few /HPF (0-FEW) Prothrombin Time 28.9 SEC (11.7-14.0) Prothromb Time International Ratio 2.7 (0.8-1.1) Medications Current Medications Diltiazem HCl (Cardizem Iv Push) 20 mg 1X ONCE IVP Last administered on 12/01/18 09:34; Start 12/01/18 at 09:30; Stop 12/01/18 at 09:31; Status DC Diltiazem HCl 125 mg/Dextrose 125 ml @ 10 mls/hr 1X ONCE IV Last administered on 12/01/18at 09:41; Start 12/01/18 at 09:30; Stop 12/01/18 at 21:59; Status DC Fentanyl Citrate (Fentanyl 2ml Vial) 50 mcg 1X ONCE IV Last administered on 12/01/18at 09:31; Start 12/01/18 at 09:30; Stop 12/01/18 at 09:33; Status DC Ondansetron HCl (Zofran) 4 mg 1X ONCE IM Last administered on 12/01/18at 09:30; Start 12/01/18 at 09:30; Stop 12/01/18 at 09:31; Status DC Fentanyl Citrate (Fentanyl 2ml Vial) 50 mcg 1X ONCE IV Last administered on 12/01/18at 09:40; Start 12/01/18 at 09:45; Stop 12/01/18 at 09:46; Status DC Magnesium Sulfate 50 ml @ 25 mls/hr 1X ONCE IV Last administered on 12/01/18at 10:44; Start 12/01/18 at 11:00; Stop 12/01/18 at 12:59; Status DC Fentanyl Citrate (Fentanyl 2ml Vial) 50 mcg 1X ONCE IV Last administered on 12/01/18at 10:44; Start 12/01/18 at 10:30; Stop 12/01/18 at 10:31; Status DC Piperacillin Sod/ Tazobactam Sod 3.375 gm/Sodium Chloride 50 ml @ 100 mls/hr Q6HRS IV Last administered on 12/02/18at 11:56; Start 12/01/18 at 13:00 Digoxin (Lanoxin) 250 mcg 1X ONCE IV Last administered on 12/01/18at 15:09; Start 12/01/18 at 15:00; Stop 12/01/18 at 15:01; Status DC Dextrose/Lactated Ringer's 1,000 ml @ 100 mls/hr Q10H IV Last administered on 12/01/18at 19:21; Start 12/01/18 at 18:00; Stop 12/02/18 at 09:49; Status DC Fentanyl Citrate (Fentanyl 2ml Vial) 75 mcg PRN Q3HRS PRN IV PAIN SEVERE Last administered on 12/02/18 09:29; Start 12/01/18 at 18:00 Ondansetron HCl (Zofran) 4 mg PRN Q6HRS PRN IV NAUSEA/VOMITING; Start 12/01/18 at 18:00 Phytonadione (Vitamin K Ampule) 2.5 mg 1X ONCE SQ Last administered on 12/01/18at 18:20; Start 12/01/18 at 18:00; Stop 12/01/18 at 18:05; Status DC Alprazolam (Xanax) 0.5 mg PRN Q8HRS PRN PO ANXIETY / AGITATION Last ad ministered on 12/02/18at 10:30; Start 12/01/18 at 18:15 Diltiazem HCl 125 mg/Dextrose 125 ml @ 5 mls/hr CONT PRN IV SEE I/O RECORD Last administered on 12/02/18at 04:07; Start 12/01/18 at 18:45 Furosemide (Lasix) 20 mg 1X ONCE IVP Last administered on 12/02/18at 09:52; Start 12/02/18 at 10:30; Stop 12/02/18 at 10:31; Status DC Albuterol/ Ipratropium (Duoneb) 3 ml RTQID NEB Last administered on 12/02/18at 12:07; Start 12/02/18 at 12:00 Budesonide (Pulmicort) 0.5 mg RTBID NEB Last administered on 12/02/18at 12:07; Start 12/02/18 at 11:00 Methylprednisolone Sodium Succinate (SOLU-Medrol 40MG VIAL) 40 mg Q8HRS IV ; Start 12/02/18 at 14:00 Active Scripts Active Reported Cardizem Cd (Diltiazem Hcl) 180 Mg Cap.er.24h 120 Mg PO DAILY Warfarin Sodium 5 Mg Tablet 5 Mg PO DAILY Probiotic (L.acidoph & Paracasei,B.lactis) 1 Each Capsule 1 Each PO DAILY Cyclobenzaprine Hcl 10 Mg Tablet 10 Mg PO TID Celexa (Citalopram Hydrobromide) 10 Mg Tablet 10 Mg PO DAILY Xanax (Alprazolam) 0.5 Mg Tablet 0.5 Mg PO PRN Q8HRS PRN Vitals/I & O Vital Sign - Last 24 Hours 12/01/18 12/01/18 12/01/18 12/01/18 13:00 13:15 13:45 14:15 Pulse 124 126 120 118 B/P (MAP) 138/79 (98) 135/73 (93) 121/77 (92) 131/79 (96) 12/01/18 12/01/18 12/01/18 12/01/18 15:00 15:09 18:20 19:00 Temp 97.6 98.5 97.6 98.5 Pulse 109 124 95 Resp 22 20 B/P (MAP) 130/77 (94) 131/79 116/79 (91) Pulse Ox 91 91 95 O2 Delivery Nasal Cannula Nasal Cannula Room Air O2 Flow Rate 2.0 2.0 12/01/18 12/01/18 12/01/18 12/01/18 19:25 20:00 20:10 20:40 Pulse 102 101 90 B/P (MAP) 116/70 (85) 114/67 (83) 130/78 (95) O2 Delivery Nasal Cannula O2 Flow Rate 2.0 12/01/18 12/01/18 12/01/18 12/01/18 21:13 21:40 22:10 23:02 Temp 97.6 97.6 Pulse 91 81 101 101 Resp 20 B/P (MAP) 129/65 (86) 131/76 (94) 139/79 (99) 139/79 (99) Pulse Ox 92 O2 Delivery Nasal Cannula O2 Flow Rate 2.0 12/01/18 12/02/18 12/02/18 12/02/18 23:53 00:37 01:45 02:52 Pulse 80 88 95 Resp 16 B/P (MAP) 120/80 (93) 133/76 (95) 134/76 (95) Pulse Ox 92 O2 Delivery Nasal Cannula O2 Flow Rate 2.0 12/02/18 12/02/18 12/02/18 12/02/18 03:04 03:12 07:00 08:00 Temp 98.7 98.7 97.9 98.7 98.7 97.9 Pulse 80 80 99 Resp 20 16 B/P (MAP) 119/66 (83) 119/66 (83) 118/74 (89) Pulse Ox 92 92 O2 Delivery Nasal Cannula Nasal Cannula Nasal Cannula Nasal Cannula O2 Flow Rate 2.0 2.0 2.0 12/02/18 12/02/18 12/02/18 12/02/18 09:28 09:29 09:55 11:00 Temp 96.5 96.5 Pulse 88 Resp 20 20 18 B/P (MAP) 117/77 (90) Pulse Ox 92 92 92 98 O2 Delivery Nasal Cannula Nasal Cannula Nasal Cannula Nasal Cannula O2 Flow Rate 2.0 2.0 2.0 2.0 12/02/18 12:07 Pulse Ox 92 O2 Delivery Nasal Cannula O2 Flow Rate 2.0 Intake and Output 12/01/18 12/01/18 12/02/18 15:00 23:00 07:00 Intake Total 100 ml 1632 ml Output Total 1 ml Balance 100 ml 1631 ml Nutrition Consultation Dietary Evaluation: Recommendations by RD: Increase Calorie Intake, Protein supplementation Comments: REC advance diet as able per GI/pending surgical plans, goal diet cardiac w/Ensure (strawberry) Expected Outcomes/Goals: avoid prolonged NPO Interpretation of weight loss: >7.5% in 3 months Malnutrition Findings: Food and Nutrition Intake (Sev: <50% est energy req 5days Weight Status: Overweight ALLEN KILGORE MD Dec 02, 2018 12:58
--- NOTE | 2018-12-02 13:16 | PDOC ---
CARDIOLOGY PROGRESS NOTE SUBJECTIVE: Ongoing pain, plans for more urgent lap yessica tomorrow. OBJECTIVE: Vital Signs/I&O: Vital Signs Date Time Temp Pulse Resp B/P (MAP) Pulse Ox O2 Delivery O2 Flow Rate FiO2 12/02/18 12:07 92 Nasal Cannula 2.0 12/02/18 11:00 96.5 88 18 117/77 (90) 96.5 I & O 12/01/18 12/01/18 12/02/18 14:59 22:59 06:59 Intake Total 100 ml 1632 ml Balance 100 ml 1632 ml Objective: a/o x 3. in pain irr heart tones ttp of abd no edema. moderate to severe as bilateral rhonchi CURRENT MEDICATIONS: dilt gtt DIAGNOSTIC TESTING: echo with normal EF and likely severe labs reviewed Labs: cxr reviewed ASSESSMENT: 1. Acute cholecystitis 2. Acute on chronic diastolic HF 3. Moderate to severe 4. Afib with RVR PLAN: 1. Ok to reverse INR as fast as needed with FFP 2. She would be deemed moderate risk for lap yessica and moderate to high risk for open intra-abd surgery 3. Will continue to optimize volume status. Diuresis as tolerated. Agree with holding IVF for now, recognize that she is NPO but appears also volume overloaded. Supportive care. SUDEEP MENDIOLA MD Dec 02, 2018 13:16
[2018-12-02] MEDS: methylPREDNISolone SOD SUCC PF 40 MG/ML VIAL. IV SCH ×2 (13:55→20:45)
[2018-12-03] VITALS (21 sets, daily range): BP systolic 92–169; BP diastolic 59–92
[2018-12-03] MEDS: PIPERACILLIN/TAZOBACTAM 3.375 GM in IV NORMAL SALINE 50ML 50 ML IV SCH ×5 (00:48→23:56)
[2018-12-03] MEDS: ALPRAZolam 0.5 MG TABLET PO PRN ×3 (01:09→18:05)
[2018-12-03] MEDS: fentaNYL PF VIAL 100 MCG/2 ML VIAL IV PRN ×5 (01:10→16:12)
[2018-12-03 05:19] LABS: BASO % 0 % (0-3); EOS % 0 % (0-3); HEMATOCRIT 43.9 % (36.0-47.0); LYMPH # 0.4 x10^3/uL (1.0-4.8); LYMPH % 4 % (24-48); MEAN CORPUSCULAR HEMOGLOBIN 30 pg (25-35); MEAN CORPUSCULAR HGB CONC 34 g/dL (31-37); MEAN CORPUSCULAR VOLUME 89 fL (79-100); MONO # 0.2 x10^3/uL (0.0-1.1); MONO % 3 % (0-9); NEUT # 9.2 x10^3/uL (1.8-7.7); NEUT % 93 % (31-73); PLATELET COUNT 283 x10^3/uL (140-400); RED BLOOD COUNT 4.96 x10^6/uL (3.50-5.40); WHITE BLOOD COUNT 9.9 x10^3/uL (4.0-11.0)
[2018-12-03 05:35] LABS: PROTHROMBIN TIME PATIENT 14.1 SEC (11.7-14.0)
[2018-12-03 05:57] LABS: ALBUMIN 2.6 g/dL (3.4-5.0); ALBUMIN/GLOBULIN RATIO 0.5 (1.0-1.7); CREATININE 0.8 mg/dL (0.6-1.0); GFR 72.4; TOTAL BILIRUBIN 0.9 mg/dL (0.2-1.0); TOTAL PROTEIN 7.5 g/dL (6.4-8.2)
[2018-12-03 06:01] LABS: POTASSIUM 2.5 mmol/L (3.5-5.1)
[2018-12-03] MEDS ORDERED: SURGICEL HEMOSTAT 4X8 EACH. ONE ×2 (06:02→09:38)
[2018-12-03] MEDS ORDERED: IOHEXOL 300 MG/ML 50 ML VIAL. ONE (06:02)
[2018-12-03] MEDS ORDERED: BUPIVAC MPF-EPI 0.5%-1:200000 30 ML VIAL. ONE (06:02)
[2018-12-03] MEDS: methylPREDNISolone SOD SUCC PF 40 MG/ML VIAL. IV SCH ×3 (06:19→21:56)
[2018-12-03] MEDS ORDERED: POTASSIUM CHLORIDE 10MEQ 100 ML IV SCH (06:30)
[2018-12-03] MEDS ORDERED: IV RINGERS,LACTATED 1000ML 1,000 ML IV SCH (07:44)
[2018-12-03] MEDS ORDERED: fentaNYL PF VIAL 100 MCG/2 ML VIAL IV PRN (07:45)
[2018-12-03] MEDS ORDERED: LIDOCAINE 1% PF 2 ML VIAL. ID PRN (07:45)
[2018-12-03] MEDS ORDERED: HYDROmorphone 2 MG/ML VIAL IV PRN (07:45)
[2018-12-03] MEDS ORDERED: MORPHINE SULFATE 2 MG/ML VIAL. IV PRN (07:45)
[2018-12-03] MEDS ORDERED: PROCHLORPERAZINE 10 MG/2 ML VIAL. IV PRN (07:45)
[2018-12-03] MEDS ORDERED: ONDANSETRON PF 4 MG/2 ML VIAL. IV PRN (07:45)
[2018-12-03] MEDS: BUDESONIDE 0.5 MG/2 ML NEBU. NEB SCH ×2 (08:00→20:18)
[2018-12-03] MEDS: IPRATRPIUM/ALBUTEROL 0.5/2.5MG 3 ML NEBU. NEB SCH ×4 (08:00→20:18)
[2018-12-03] MEDS: POTASSIUM CL 40MEQ D5-0.45NACL 1,000 ML IV SCH ×2 (08:13→21:56)
[2018-12-03 09:17] LABS: POTASSIUM 3.3 mmol/L (3.5-5.1)
[2018-12-03] MEDS ORDERED: fentaNYL PF VIAL 100 MCG/2 ML VIAL ONE ×2 (09:29→11:33)
--- NOTE | 2018-12-03 09:40 | PN ---
DATE: 12/03/2018 DAILY PROGRESS NOTE SUBJECTIVE: The patient is awake, alert, is in the surgical holding, getting ready to have a cholecystectomy this morning. Potassium was 2.5 this morning early and with replacement is up to 3.3 and she will be going back into surgery shortly. OBJECTIVE: VITAL SIGNS: Stable. She is afebrile. GENERAL: She is awake and alert. CHEST: Clear today with no wheezes like she had yesterday. HEART: Regular rate and rhythm. ABDOMEN: Still with right upper quadrant tenderness. EXTREMITIES: Without cyanosis, clubbing, edema. LABORATORY DATA: White count came from 18,700 down to 9900 with still a left shift, but improving. Hemoglobin has dropped from 18.8, down to 15, consistent with rehydration. Again, potassium was 2.5 this morning, but is up to 3.3 with replacement. Liver function tests have decreased from admission dramatically. She states she is hungry this morning. IMPRESSION: 1. Acute cholecystitis, for surgery today. 2. Atrial fibrillation with rapid ventricular response, asymptomatic, currently controlled rate. 3. Ypvskfup-la-fabpyp aortic stenosis by history. 4. Acute on chronic diastolic congestive heart failure. PLAN: Surgery today. INR is 1.1. Anticoagulation to be restarted after surgery when okay with surgeons. I would guess that she would be ready for discharge tomorrow as she seems to be doing well in all other regards at this point. TALA PHILLIPS MD DR: BRIAN/samson JOB#: [id number] / [id number]
[2018-12-03] MEDS ORDERED: ONDANSETRON PF 4 MG/2 ML VIAL. ONE ×2 (09:41→09:49)
[2018-12-03] MEDS ORDERED: DEXAMETHASONE SOD PHOS 4 MG/ML VIAL ONE ×4 (09:41→09:49)
[2018-12-03] MEDS ORDERED: PROPOFOL 20 ML IV ONE (09:41)
[2018-12-03] MEDS ORDERED: LIDOCAINE 2% PF 5 ML VIAL. ONE (09:41)
[2018-12-03] MEDS ORDERED: SEVOFLURANE 31 TO 60 MINUTES. IH ONE (09:42)
[2018-12-03] MEDS ORDERED: NEOSTIGMINE 10 MG/10 ML VIAL. ONE (10:20)
[2018-12-03] MEDS ORDERED: HEPARIN for IV BOLUS 10,000 UNIT/10 ML VIAL. ONE (10:20)
[2018-12-03] MEDS ORDERED: GLYCOPYRROLATE 1 MG/5 ML VIAL. ONE (10:21)
[2018-12-03] MEDS ORDERED: PHENYLEPHRINE in 0.9% NACL PF 1 MG/10 ML SYRINGE. IV ONE (10:28)
--- NOTE | 2018-12-03 10:36 | RAD ---
Operative cholangiogram. HISTORY: Cholecystitis, cholecystectomy Images were obtained from an operative cholangiogram. The common duct is dilated. There is mild stenosis at the distal duct but not obstruction. There is flow of contrast into the duodenum. A definite stone was not identified. IMPRESSION: 1. Narrowing at the distal duct without obstruction. 2. No bile duct stone identified. 0.3 minutes of fluoroscopy was used for the study. 5 fluoroscopic images were saved to the PACS. Electronically signed by: Derick Caruso MD (12/03/2018 10:32 AM) [facility]
--- NOTE | 2018-12-03 11:08 | PDOC4 ---
Operative Note Operative Note Operative Note: Preoperative Diagnosis: Acute cholecystitis Postoperative Diagnosis: Severe acute cholecystitis Procedure: Laparoscopic cholecystectomy with intraoperative cholangiogram Surgeons: [employer] Advertisement Distributor: Alyson JARAMILLO Anesthesia: Gen. Estimated Blood Loss: 200 mL Specimen: Gallbladder to pathology Drains: 19 Sudanese round Esau drain to right upper quadrant Complications: None Indications: The patient is a 63-year-old female who was admitted with severe upper abdominal pain. Her evaluation is consistent with acute cholecystitis. Surgical treatment was offered by means of a laparoscopic cholecystectomy. The risks of surgery were discussed which include bleeding, infection, bile duct injury, bile leak, pain, the potential for additional surgeries or procedures. The patient understands and would like to proceed. Description: The patient was taken to the operating room and laid supine on the operating table. General anesthesia was performed. The abdomen was prepped with ChloraPrep and draped in a standard surgical fashion. A small infraumbilical incision was made with a scalpel. The Veress needle was then inserted and a pneumoperitoneum was then created. A 5 mm trocar was then inserted and the laparoscope was introduced. In the upper midabdomen an 12 mm trocar was inserted and in the right upper quadrant two 5 mm trochars were inserted. The gallbladder was markedly enlarged, distended, with marked surrounding inflammatory change. Some of the adherent omentum was peeled away. The gallbladder was then aspirated to provide decompression and retracted cephalad. The cystic duct was dissected free from surrounding tissues. This was somewhat challenging due to the inflammatory response. One clip was placed on the duct near the gallbladder junction. An opening was made in the duct and a cholangiocatheter placed within and secured with a clip. Using contrast dye and fluoroscopy an intraoperative cholangiogram was performed. There was some generalized ductal dilatation however no filling defects were seen and contrast passed into the duodenum. The clip and catheter were then withdrawn. Three clips were placed on the cystic duct and it was divided. The cystic artery was then identified, dissected free, doubly clipped and divided as well. The gallbladder was then mobilized away from the liver with cautery. This again proved quite difficult due to the marked inflammatory response and significant enlargement of the gallbladder. Eventually the gallbladder was fully mobilized and the fossa was packed with a Surgicel to assist with oozing. The gallbladder was then placed in an endoscopic bag and extracted at the superior trocar site. The fascia there was closed with 0 PDS sutures. A 19 Sudanese round Esau drain was left in the gallbladder fossa which exited the right lateral port incision. This was secured to the skin with 2-0 silk. All blood and irrigation fluid was suctioned and hemostasis was good. The remaining ports were removed and the pneumoperitoneum was relieved. The skin incisions were injected with half percent Marcaine with epinephrine, and all were closed using 4-0 Monocryl suture. Steri-Strips and dressings were then applied. The patient tolerated the procedure well and was sent to the recovery room in stable condition. At the end of the case all counts were correct. ALLEN KILGORE MD Dec 03, 2018 11:08
[2018-12-03] MEDS ORDERED: MORPHINE SULFATE 2 MG/ML VIAL. ONE (11:33)
[2018-12-03] MEDS: oxyCODONE/APAP 5/325 1 TAB TABLET PO PRN ×2 (12:57→19:48)
[2018-12-04] MEDS: oxyCODONE/APAP 5/325 1 TAB TABLET PO PRN ×4 (01:56→21:59)
[2018-12-04] MEDS: ALPRAZolam 0.5 MG TABLET PO PRN ×4 (01:57→19:34)
[2018-12-04 03:40] VITALS: BP 173/99
[2018-12-04] MEDS: POTASSIUM CL 40MEQ D5-0.45NACL 1,000 ML IV SCH (06:35)
[2018-12-04] MEDS: PIPERACILLIN/TAZOBACTAM 3.375 GM in IV NORMAL SALINE 50ML 50 ML IV SCH ×4 (06:35→19:36)
[2018-12-04] MEDS: methylPREDNISolone SOD SUCC PF 40 MG/ML VIAL. IV SCH ×3 (06:36→19:21)
[2018-12-04 07:30] VITALS: BP 172/101
--- NOTE | 2018-12-04 08:34 | PDOC ---
SURGICAL PROGRESS NOTE Subjective tolerating diet still with significant pain, RUQ, drain site Vital Signs Vital Signs Date Time Temp Pulse Resp B/P (MAP) Pulse Ox O2 Delivery O2 Flow Rate FiO2 12/04/18 07:45 20 96 Nasal Cannula 1.0 12/04/18 07:30 98.3 82 172/101 (124) 98.3 I&O Intake and Output 12/04/18 06:59 Intake Total 970 ml Output Total 2545 ml Balance -1575 ml Intake Oral 120 ml IV Total 850 ml Output Urine Total 2200 ml Drainage Total 145 ml Estimated Blood Loss 200 ml # Voids 101 # Bowel Movements 1 General: Alert, Oriented X3, Cooperative, No acute distress Abdomen: Soft, Other (lap site dressings dry, AL bloody, nonbilious ) Labs Laboratory Tests Test 12/02/18 22:30 12/03/18 04:05 12/03/18 08:55 Prothrombin Time 15.0 SEC (11.7-14.0) 14.1 SEC (11.7-14.0) Prothromb Time International Ratio 1.2 (0.8-1.1) 1.1 (0.8-1.1) White Blood Count 9.9 x10^3/uL (4.0-11.0) Red Blood Count 4.96 x10^6/uL (3.50-5.40) Hemoglobin 15.0 g/dL (12.0-15.5) Hematocrit 43.9 % (36.0-47.0) Mean Corpuscular Volume 89 fL (79-100) Mean Corpuscular Hemoglobin 30 pg (25-35) Mean Corpuscular Hemoglobin Concent 34 g/dL (31-37) Red Cell Distribution Width 16.0 % (11.5-14.5) Platelet Count 283 x10^3/uL (140-400) Neutrophils (%) (Auto) 93 % (31-73) Lymphocytes (%) (Auto) 4 % (24-48) Monocytes (%) (Auto) 3 % (0-9) Eosinophils (%) (Auto) 0 % (0-3) Basophils (%) (Auto) 0 % (0-3) Neutrophils # (Auto) 9.2 x10^3/uL (1.8-7.7) Lymphocytes # (Auto) 0.4 x10^3/uL (1.0-4.8) Monocytes # (Auto) 0.2 x10^3/uL (0.0-1.1) Eosinophils # (Auto) 0.0 x10^3/uL (0.0-0.7) Basophils # (Auto) 0.0 x10^3/uL (0.0-0.2) Sodium Level 136 mmol/L (136-145) 138 mmol/L (136-145) Potassium Level 2.5 mmol/L (3.5-5.1) 3.3 mmol/L (3.5-5.1) Chloride Level 95 mmol/L (98-107) 97 mmol/L (98-107) Carbon Dioxide Level 31 mmol/L (21-32) 32 mmol/L (21-32) Anion Gap 10 (6-14) 9 (6-14) Blood Urea Nitrogen 25 mg/dL (7-20) Creatinine 0.8 mg/dL (0.6-1.0) Estimated GFR (Cockcroft-Gault) 72.4 BUN/Creatinine Ratio 31 (6-20) Glucose Level 152 mg/dL (70-99) Calcium Level 9.0 mg/dL (8.5-10.1) Total Bilirubin 0.9 mg/dL (0.2-1.0) Aspartate Amino Transf (AST/SGOT) 35 U/L (15-37) Alanine Aminotransferase (ALT/SGPT) 68 U/L (14-59) Alkaline Phosphatase 93 U/L (46-116) Total Protein 7.5 g/dL (6.4-8.2) Albumin 2.6 g/dL (3.4-5.0) Albumin/Globulin Ratio 0.5 (1.0-1.7) Laboratory Tests Test 12/03/18 08:55 Sodium Level 138 mmol/L (136-145) Potassium Level 3.3 mmol/L (3.5-5.1) Chloride Level 97 mmol/L (98-107) Carbon Dioxide Level 32 mmol/L (21-32) Anion Gap 9 (6-14) Problem List Problems Medical Problems: (1) Anxiety Status: Acute (2) Atrial fibrillation with RVR Status: Acute (3) Dehydration Status: Acute (4) Elevated brain natriuretic peptide (BNP) level Status: Acute (5) Elevated liver function tests Status: Acute (6) Epigastric pain Status: Acute (7) Hypomagnesemia Status: Acute (8) Hyponatremia Status: Acute Assessment/Plan s/p lap yessica severe cholecystitis, continue drain, abx LUCRETIA SHIN LAND RECLAMATION SPECIALIST Dec 04, 2018 08:33
[2018-12-04] MEDS: BUDESONIDE 0.5 MG/2 ML NEBU. NEB SCH ×2 (08:39→19:38)
[2018-12-04] MEDS: IPRATRPIUM/ALBUTEROL 0.5/2.5MG 3 ML NEBU. NEB SCH ×4 (08:39→19:38)
[2018-12-04] MEDS: fentaNYL PF VIAL 100 MCG/2 ML VIAL IV PRN (10:57)
[2018-12-04 11:00] VITALS: BP 150/97
--- NOTE | 2018-12-04 11:14 | PDOC ---
PULMONARY PROGRESS NOTES Subjective c/o pain no soa Vitals Vital Signs Date Time Temp Pulse Resp B/P (MAP) Pulse Ox O2 Delivery O2 Flow Rate FiO2 12/04/18 10:57 23 99 Nasal Cannula 1.0 12/04/18 07:30 98.3 82 172/101 (124) 98.3 General: Alert, No acute distress Lungs: Wheezing (occ) Cardiovascular: S1 Abdomen: Soft, Other (tender) Neuro Exam: Alert Extremities: No Edema Skin: Warm Labs Laboratory Tests Test 12/02/18 22:30 12/03/18 04:05 12/03/18 08:55 Prothrombin Time 15.0 SEC (11.7-14.0) 14.1 SEC (11.7-14.0) Prothromb Time International Ratio 1.2 (0.8-1.1) 1.1 (0.8-1.1) White Blood Count 9.9 x10^3/uL (4.0-11.0) Red Blood Count 4.96 x10^6/uL (3.50-5.40) Hemoglobin 15.0 g/dL (12.0-15.5) Hematocrit 43.9 % (36.0-47.0) Mean Corpuscular Volume 89 fL (79-100) Mean Corpuscular Hemoglobin 30 pg (25-35) Mean Corpuscular Hemoglobin Concent 34 g/dL (31-37) Red Cell Distribution Width 16.0 % (11.5-14.5) Platelet Count 283 x10^3/uL (140-400) Neutrophils (%) (Auto) 93 % (31-73) Lymphocytes (%) (Auto) 4 % (24-48) Monocytes (%) (Auto) 3 % (0-9) Eosinophils (%) (Auto) 0 % (0-3) Basophils (%) (Auto) 0 % (0-3) Neutrophils # (Auto) 9.2 x10^3/uL (1.8-7.7) Lymphocytes # (Auto) 0.4 x10^3/uL (1.0-4.8) Monocytes # (Auto) 0.2 x10^3/uL (0.0-1.1) Eosinophils # (Auto) 0.0 x10^3/uL (0.0-0.7) Basophils # (Auto) 0.0 x10^3/uL (0.0-0.2) Sodium Level 136 mmol/L (136-145) 138 mmol/L (136-145) Potassium Level 2.5 mmol/L (3.5-5.1) 3.3 mmol/L (3.5-5.1) Chloride Level 95 mmol/L (98-107) 97 mmol/L (98-107) Carbon Dioxide Level 31 mmol/L (21-32) 32 mmol/L (21-32) Anion Gap 10 (6-14) 9 (6-14) Blood Urea Nitrogen 25 mg/dL (7-20) Creatinine 0.8 mg/dL (0.6-1.0) Estimated GFR (Cockcroft-Gault) 72.4 BUN/Creatinine Ratio 31 (6-20) Glucose Level 152 mg/dL (70-99) Calcium Level 9.0 mg/dL (8.5-10.1) Total Bilirubin 0.9 mg/dL (0.2-1.0) Aspartate Amino Transf (AST/SGOT) 35 U/L (15-37) Alanine Aminotransferase (ALT/SGPT) 68 U/L (14-59) Alkaline Phosphatase 93 U/L (46-116) Total Protein 7.5 g/dL (6.4-8.2) Albumin 2.6 g/dL (3.4-5.0) Albumin/Globulin Ratio 0.5 (1.0-1.7) Medications Active Scripts Medications Dose Route/Sig Max Daily Dose Days Date Category Cardizem Cd (Diltiazem Hcl) 180 Mg Cap.er.24h 120 Mg PO DAILY 11/01/18 Reported Warfarin Sodium 5 Mg Tablet 5 Mg PO DAILY 11/01/18 Reported Probiotic (L.acidoph & Paracasei,B.lactis) 1 Each Capsule 1 Each PO DAILY 11/01/18 Reported Cyclobenzaprine Hcl 10 Mg Tablet 10 Mg PO TID 11/01/18 Reported Celexa (Citalopram Hydrobromide) 10 Mg Tablet 10 Mg PO DAILY 11/01/18 Reported Xanax (Alprazolam) 0.5 Mg Tablet 0.5 Mg PO PRN Q8HRS PRN 11/01/18 Reported Impression . 1. Acute hypoxic respiratory failure in a patient who has been a smoker for 50 years and presented with mild bronchospasm. This could be related to acute exacerbation of chronic obstructive pulmonary disease versus cardiac asthma since she is in mild congestive heart failure and has atrial fibrillation with rapid ventricular response, present on admission. 2. Previous abnormal echo with severe aortic stenosis and moderate mitral regurgitation, which both are risk factors for congestive heart failure. 3. A 50 years of tobacco use, suspect underlying chronic obstructive pulmonary disease. 4. Acute cholecystitis. s/p surgery 5. Moderate protein-calorie malnutrition. 6. Leukocytosis secondary to acute cholecystitis. Plan . 1. Oxygen 2. DuoNebs. 3. Pulmicort nebs. 4. low dose Solu-Medrol. 5. Follow Cardiology recommendation. 6. Follow General Surgery recommendations. 7. Empiric antibiotics. She does have a cough with light yellow sputum production, likely has acute bronchitis. She was started on Zosyn. 8. We will follow along with you. Discussed with TABBY. THEODORA MASON MD Dec 04, 2018 11:14
[2018-12-04 15:00] VITALS: BP 152/92
--- NOTE | 2018-12-04 15:24 | PDOC ---
TYLER MYERS APRN 12/04/18 1524: CARDIO Progress Notes Date and Time Date of Service 12/04/18 Time of Evaluation 1510 Subjective Subjective: No Chest Pain, No shortness of breath Vitals Vitals Vital Signs Date Time Temp Pulse Resp B/P (MAP) Pulse Ox O2 Delivery O2 Flow Rate FiO2 12/04/18 11:46 Nasal Cannula 1.0 12/04/18 11:25 23 98 12/04/18 11:00 98.3 94 150/97 (114) 98.3 Weight Weight [ ] Input and Output Intake and Output Intake and Output 12/04/18 06:59 Intake Total 970 ml Output Total 2545 ml Balance -1575 ml Intake Oral 120 ml IV Total 850 ml Output Urine Total 2200 ml Drainage Total 145 ml Estimated Blood Loss 200 ml # Voids 101 # Bowel Movements 1 Physical Exam HEENT: Neck Supple W Full Motion Chest: Symmetric LUNGS: Clear to Auscultation Heart: S1S2, RRR Abdomen: Other (diffuse tenderness) Neurology: alert, follow commands Assessment Assessment 1. Acute cholecystitis s/p lap yessica. POD #1 2. Acute on chronic diastolic HF 3. PAFIB with RVR; back in SR. 4. Moderate to severe 5. Hypokalemia; replaced 6. Tobaccoism; discussed/encouraged cessation Recommendations Resume oral Cardizem for rate control Resume anticoagulation therapy when okay from surgical standpoint ASA in meantime Lasix PRN Supportive care SUDEEP MENDIOLA MD 12/04/18 2233: CARDIO Progress Notes Plan Plan Pt. seen and examined. Agree with above OPERATIONS SUPERINTENDENT note. Continue supportive care. Currently appears euvolemic. Recovering from yessica Outpt mgmt of after recovery from yessica. TYLER MYERS APRN Dec 04, 2018 15:24 SUDEEP MENDIOLA MD Dec 04, 2018 22:33
--- NOTE | 2018-12-04 16:10 | NUR ---
SS following for discharge planning. SS reviewed pt chart. Pt is self pay pt. HCFS following for self pay status. Pt is from home with spouse and is currently requiring oxygen. No discharge needs noted at this time. SS will continue to follow for discharge planning.
[2018-12-04 19:15] VITALS: BP 135/89
[2018-12-04] MEDS: LACTOBACILLUS RHAMNOSUS GG 1 CAPSULE. PO SCH (19:34)
[2018-12-04 23:00] VITALS: BP 146/87
[2018-12-05] MEDS: ALPRAZolam 0.5 MG TABLET PO PRN ×2 (01:58→08:29)
[2018-12-05] MEDS: PIPERACILLIN/TAZOBACTAM 3.375 GM in IV NORMAL SALINE 50ML 50 ML IV SCH ×2 (02:00→04:53)
[2018-12-05 03:10] VITALS: BP 173/89
[2018-12-05] MEDS: oxyCODONE/APAP 5/325 1 TAB TABLET PO PRN ×2 (04:52→09:48)
[2018-12-05] MEDS: methylPREDNISolone SOD SUCC PF 40 MG/ML VIAL. IV SCH (04:53)
[2018-12-05 07:00] VITALS: BP 179/112
[2018-12-05] MEDS ORDERED: ASPIRIN ENTERIC COATED 81 MG TABLET.DR. PO SCH (08:00)
[2018-12-05] MEDS: IPRATRPIUM/ALBUTEROL 0.5/2.5MG 3 ML NEBU. NEB SCH ×2 (08:10→12:00)
[2018-12-05] MEDS: BUDESONIDE 0.5 MG/2 ML NEBU. NEB SCH (08:10)
[2018-12-05] MEDS: LACTOBACILLUS RHAMNOSUS GG 1 CAPSULE. PO SCH (08:29)
--- NOTE | 2018-12-05 10:41 | PDOC ---
LUCRETIA SHIN OUTREACH ASSOCIATE 12/05/18 1041: SURGICAL PROGRESS NOTE Subjective tolerating diet pain improving reports daughter can assist with drain care Vital Signs Vital Signs Date Time Temp Pulse Resp B/P (MAP) Pulse Ox O2 Delivery O2 Flow Rate FiO2 12/05/18 09:48 23 96 Nasal Cannula 1.0 12/05/18 08:19 74 179/112 12/05/18 07:00 97.6 97.6 I&O Intake and Output 12/05/18 07:00 Intake Total 1680 ml Output Total 330 ml Balance 1350 ml Intake Oral 1000 ml Other 680 ml Drainage Total 330 ml # Voids 4 # Bowel Movements 1 General: Alert, Oriented X3, Cooperative, No acute distress Abdomen: Soft, Other (drain serosang, lap sites dry, incisional TTP) Labs Laboratory Tests Test 12/04/18 16:30 Magnesium Level 1.9 mg/dL (1.8-2.4) Laboratory Tests Test 12/04/18 16:30 Magnesium Level 1.9 mg/dL (1.8-2.4) Problem List Problems Medical Problems: (1) Anxiety Status: Acute (2) Atrial fibrillation with RVR Status: Acute (3) Dehydration Status: Acute (4) Elevated brain natriuretic peptide (BNP) level Status: Acute (5) Elevated liver function tests Status: Acute (6) Epigastric pain Status: Acute (7) Hypomagnesemia Status: Acute (8) Hyponatremia Status: Acute Assessment/Plan s/p yessica ok to dc from surgical pov home with drain--FU on 12/[address] dubon ok to resume anticoagulants ALLEN DUBON MD 12/05/18 1157: SURGICAL PROGRESS NOTE Assessment/Plan Agree with above LUCRETIA SHIN APRN Dec 05, 2018 10:41 ALLEN DUBON MD Dec 05, 2018 11:57
[2018-12-05 11:00] VITALS: BP 155/99
--- NOTE | 2018-12-05 11:56 | PDOC ---
PULMONARY PROGRESS NOTES Subjective NO MORE PAIN no soa Vitals Vital Signs Date Time Temp Pulse Resp B/P (MAP) Pulse Ox O2 Delivery O2 Flow Rate FiO2 12/05/18 11:00 98.0 92 20 155/99 (117) 91 Room Air 98.0 12/05/18 10:45 1.0 General: Alert, No acute distress Lungs: Wheezing (resolved) Cardiovascular: S1 Abdomen: Soft, Other (tender) Neuro Exam: Alert Extremities: No Edema Skin: Warm Labs Laboratory Tests Test 12/04/18 16:30 Magnesium Level 1.9 mg/dL (1.8-2.4) Laboratory Tests Test 12/04/18 16:30 Magnesium Level 1.9 mg/dL (1.8-2.4) Medications Active Scripts Medications Dose Route/Sig Max Daily Dose Days Date Category Cardizem Cd (Diltiazem Hcl) 180 Mg Cap.er.24h 120 Mg PO DAILY 11/01/18 Reported Warfarin Sodium 5 Mg Tablet 5 Mg PO DAILY 11/01/18 Reported Probiotic (L.acidoph & Paracasei,B.lactis) 1 Each Capsule 1 Each PO DAILY 11/01/18 Reported Cyclobenzaprine Hcl 10 Mg Tablet 10 Mg PO TID 11/01/18 Reported Celexa (Citalopram Hydrobromide) 10 Mg Tablet 10 Mg PO DAILY 11/01/18 Reported Xanax (Alprazolam) 0.5 Mg Tablet 0.5 Mg PO PRN Q8HRS PRN 11/01/18 Reported Impression . 1. Acute hypoxic respiratory failure in a patient who has been a smoker for 50 years ,related to acute exacerbation of chronic obstructive pulmonary disease /cardiac asthma since she is in mild congestive heart failure and has atrial fibrillation with rapid ventricular response, present on admission. wheezing resolved 2. Previous abnormal echo with severe aortic stenosis and moderate mitral regurgitation, which both are risk factors for congestive heart failure. 3. A 50 years of tobacco use, suspect underlying chronic obstructive pulmonary disease. 4. Acute cholecystitis. s/p surgery 5. Moderate protein-calorie malnutrition. 6. Leukocytosis secondary to acute cholecystitis. Plan . 1. Oxygen 2. DuoNebs. 3. Pulmicort nebs. 4. dc steroids 5. Follow Cardiology recommendation. 6. Follow General Surgery recommendations. 7. Empiric antibiotics. Discussed with RN.stable for dc will sign off THEODORA MASON MD Dec 05, 2018 11:56
[2018-12-05] MEDS ORDERED: OXYC1TAB15 PO (12:36)
--- NOTE | 2018-12-05 13:17 | DS ---
DATE OF DISCHARGE: 12/05/2018 HOSPITAL COURSE: The patient is a 63-year-old female patient who was admitted on 12/01/2018 with abdominal pain, was not eating for up to a week. She was nauseated; however, she denied any chest pain, vomiting or diarrhea. She was investigated and was found to have acute cholecystitis. Eventually, she was seen in consultation by the Cardiology team, the seamer panty hose as well as the surgical team and underwent a laparoscopic cholecystectomy successfully with intraoperative cholangiogram and 19-Hebrew round Esau drain in the right upper quadrant was kept in place. Her Coumadin was held and was seen by the seamer panty hose and was treated symptomatically with oxygen, DuoNeb and Pulmicort. She was also seen by the director of transportation and apparently she is known to have acute on chronic diastolic congestive heart failure, paroxysmal atrial fibrillation with rapid ventricular response, back in sinus rhythm. She has bwwqkmbf-jw-eandmj aortic stenosis. She also was hypokalemic, hypomagnesemic on admission that has resolved and as she remained hemodynamically stable, a decision was made to discharge her home to be followed as an outpatient with outpatient management for her aortic stenosis. She would resume her anticoagulation and aspirin and we will follow with the surgical team on 12/07 for removal of her intra-abdominal drain, this is to document that I have not seen this patient. Unfortunately, I was covering Dr. Wil Kay. Unfortunately, this patient did not show up on the list so I have not seen here; however, apparently the surgical team, the director of transportation and the seamer panty hose were all agreeable that she is stable and can be discharged home. PHYSICAL EXAMINATION: VITAL SIGNS: At the time of discharge showed her heart rate was 92, blood pressure 155/99, temperature was 98, respiratory rate 20, and oxygen saturation was 91%. HEAD, EYES, EARS, NOSE AND THROAT: Normocephalic, atraumatic. NECK: Supple. HEART: Showed normal first and second heart sounds with no gallop, rub or murmur. CHEST: Clear to auscultation. No crepitation or rhonchi. ABDOMEN: Distended, soft with the dome of the drain in the right upper quadrant. There is no guarding or rigidity. No organomegaly. All hernial orifice intact. Bowel sounds normal. NEUROLOGIC: She is awake, alert, responding appropriately. All cranial nerves intact. EXTREMITIES: She moves extremities without difficulty. LABORATORY DATA: Showed that her serum sodium was 138, potassium 3.3, chloride 97, bicarbonate 32, anion gap of 9. Her magnesium is 1.9. Her white cell count was 9900, hemoglobin 15, hematocrit 44, MCV 89 and platelet count 183,000. DISCHARGE MEDICATIONS: She was discharged home to continue on following medications: oxycodone/APAP 5/325 one tablet every 6 hours as needed, alprazolam 0.5 mg every 8 hours as needed, citalopram hydrobromide or Celexa 10 mg daily, Flexeril 10 mg 3 times a day, diltiazem hydrochloride 120 mg daily, acidophilus for probiotic one capsule daily and Coumadin 5 mg once a day. FINAL DISCHARGE DIAGNOSES: Acute cholecystitis, status post laparoscopic cholecystectomy. The patient was discharged home to follow up on 12/[address] Chatman for the drainage. Other medical problems include anxiety, atrial fibrillation with rapid ventricular response, now in sinus rhythm, dehydration, resolved; elevated liver enzymes, resolved; hypomagnesemia, resolved; hyponatremia, resolved; hypokalemia, resolved. She has aortic stenosis and acute hypoxic respiratory failure and the patient who is a smoker for 50 years related to exacerbation of chronic obstructive pulmonary disease and moderate protein-calorie malnutrition. TONO TAYLOR MD DR: ASHUTOSH/samson JOB#: [id number] / [id number]
--- NOTE | 2018-12-05 14:15 | NUR ---
PATIENT DISCHARGED TO HOME. INSTRUCTIONS GIVEN AND VERBALIZED UNDERSTANDING. PIV AND HEART MONITOR REMOVED. ESCORTED PATIENT TO FRONT ENTRANCE PER WHEELCHAIR INTO A PRIVATE VEHICLE.
--- NOTE | 2018-12-06 14:07 | PATHOLOGY ---
[facility] Accession Number: [id number] . 01 Material submitted: . gallbladder - GALLBLADDER . 01 Clinical history: . None provided . 02 Diagnosis: Gallbladder, laparoscopic cholecystectomy: - Cholelithiasis. - Acute necrotizing and chronic cholecystitis. (JPM:jj; 12/06/2018) QMS/12/06/2018 . 02 Comment: There is no evidence of malignancy. . 02 Electronically signed: . Darius Ly MD, Pathologist NPI- [id number] . 01 Gross description: . The specimen is received in formalin, labeled "Riri Dacosta, gallbladder". Received is an intact gallbladder measuring 12.4 x 5.9 x 5.5 cm in greatest dimensions displaying a dusky pink-marie serosal surface. Opening the specimen reveals a moderately trabeculated, marie-aldana mucosa with a gallbladder wall thickness of 0.1 cm. Calculi are present displaying a yellow-aldana and multifaceted appearance, and no masses or lesions are noted grossly. [employer] Supervisor sections, to include the proximal margin, are submitted in cassette A1. (CAA; 12/05/2018) QAC/QAC . 02 Pathologist provided ICD-10: K80.12 . 02 CPT . 935171 Specimen Comment: A courtesy copy of this report has been sent to Specimen Comment: [phone], , . Specimen Comment: Report sent to ,DR PARRA / DR NYE Performed at: 01 [facility] [address], [place], [place] [id number] MD David Hodgson MD Phone: [phone] Performed at: 02 [facility] [address] [place], [place] [id number] MD Darius Ly MD Phone: [phone]
== END 2018-12-05 14:15 | disposition home or self-care (01) | DRG 417 ==
LOC: ER 08:59 → 2 SOUTH 09:26
PROVIDERS: ADMIT Family Medicine; ATTEND Family Medicine
PROC: 30233K1 Transfusion of Nonautologous Frozen Plasma into Peripheral Vein, Percutaneous Approach (ICD-10-PCS; principal; 2018-12-02)
PROC: 0FT44ZZ Resection of Gallbladder, Percutaneous Endoscopic Approach (ICD-10-PCS; 2018-12-03)
PROC: BF101ZZ Fluoroscopy of Bile Ducts using Low Osmolar Contrast (ICD-10-PCS; 2018-12-03)
PROC: 5A09357 Assistance with Respiratory Ventilation, Less than 24 Consecutive Hours, Continuous Positive Airway Pressure (ICD-10-PCS; 2018-12-03)
DX: K81.0 Acute cholecystitis (principal); I50.33 Acute on chronic diastolic (congestive) heart failure; J96.01 Acute respiratory failure with hypoxia; E44.0 Moderate protein-calorie malnutrition; E87.1 Hypo-osmolality and hyponatremia; J44.1 Chronic obstructive pulmonary disease with (acute) exacerbation; D75.1 Secondary polycythemia; E83.42 Hypomagnesemia; E87.6 Hypokalemia; E86.0 Dehydration; F41.9 Anxiety disorder, unspecified; F12.90 Cannabis use, unspecified, uncomplicated; I08.0 Rheumatic disorders of both mitral and aortic valves; M19.90 Unspecified osteoarthritis, unspecified site; I11.0 Hypertensive heart disease with heart failure; I48.0 Paroxysmal atrial fibrillation; J98.01 Acute bronchospasm; F17.210 Nicotine dependence, cigarettes, uncomplicated; Z79.01 Long term (current) use of anticoagulants; Z82.49 Family history of ischemic heart disease and other diseases of the circulatory system; Z83.3 Family history of diabetes mellitus; Z79.899 Other long term (current) drug therapy; Z68.26 Body mass index [BMI] 26.0-26.9, adult; Z71.6 Tobacco abuse counseling
CPT/HCPCS: 36415; 71045; 74176; 74300; 80051; 80053; 81001; 82550; 83690; 83735; 83880; 84484; 85007; 85025; 85610; 86850; 86900; 86901; 86927; 93005; 94640; 94760; 96365; 96366; 96368; 96375; 96376; 99406; J1100; J1160; J1644; J1940; J2001; J2270; J2370; J2405; J2543; J2704; J2710; J2920; J3010; J3430; J3475; J3480; J3490; J7030; J7042; J7120; J7620; J7626; P9017; Q9967; 99291-25

== ENCOUNTER 2019-11-07 11:24 | Emergency (ER) | payer SELFPAY ==
[~2019-11-07] VITALS: Ht 165.1 cm; Wt 86.4 kg
[~2019-11-07 11:24] MED LIST changes: +OXYC1TAB15 PO
[2019-11-07] MEDS ORDERED: ALBUTEROL SULFATE 2.5 MG/3 ML NEBU. NEB ONE (12:15)
[2019-11-07] MEDS ORDERED: CLINDAMYCIN 900MG PREMIX 50 ML IV ONE (12:15)
[2019-11-07] MEDS ORDERED: fentaNYL PF VIAL 100 MCG/2 ML VIAL IVP ONE (12:15)
[2019-11-07 12:44] LABS: BASO # 0.1 x10^3/uL (0.0-0.2); BASO % 1 % (0-3); EOS # 0.1 x10^3/uL (0.0-0.7); EOS % 1 % (0-3); HEMATOCRIT 47.9 % (36.0-47.0); HEMOGLOBIN 16.9 g/dL (12.0-15.5); LYMPH % 24 % (24-48); MEAN CORPUSCULAR HEMOGLOBIN 32 pg (25-35); MEAN CORPUSCULAR HGB CONC 35 g/dL (31-37); MEAN CORPUSCULAR VOLUME 89 fL (79-100); MONO # 0.9 x10^3/uL (0.0-1.1); MONO % 10 % (0-9); NEUT # 5.3 x10^3/uL (1.8-7.7); NEUT % 64 % (31-73); PLATELET COUNT 252 x10^3/uL (140-400); RED BLOOD COUNT 5.36 x10^6/uL (3.50-5.40); RED CELL DISTRIBUTION WIDTH 14.2 % (11.5-14.5); WHITE BLOOD COUNT 8.3 x10^3/uL (4.0-11.0)
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
[2019-11-07 12:50] LABS: PROTHROMBIN TIME PATIENT 13.1 SEC (11.7-14.0)
[2019-11-07 12:53] LABS: CALCIUM 8.7 mg/dL (8.5-10.1); CREATININE 0.9 mg/dL (0.6-1.0); POTASSIUM 3.6 mmol/L (3.5-5.1)
[2019-11-07 12:59] LABS: ALBUMIN/GLOBULIN RATIO 0.7 (1.0-1.7); TOTAL PROTEIN 7.4 g/dL (6.4-8.2)
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
[2019-11-07 14:01] LABS: BILIRUBIN,URINE MODERATE (NEG); CLARITY,URINE CLEAR; COLOR,URINE AMBER; NITRITE,URINE NEGATIVE (NEG); PROTEIN,URINE >=300 mg/dL (NEG-TRACE)
[2019-11-07 14:07] LABS: BARBITURATES NEG (NEG); BENZODIAZEPINES POS (NEG); CANNABINOIDS POS (NEG); COCAINE NEG (NEG); METHADONE NEG (NEG); OPIATES NEG (NEG); PHENCYCLIDINE NEG (NEG)
[2019-11-07 14:17] LABS: AMPHETAMINE/METHAMPHETAMINE POS (NEG)
[2019-11-07 14:29] LABS: BACTERIA,URINE FEW /HPF (0-FEW); RBC,URINE 0 /HPF (0-2); SQUAMOUS EPITHELIAL CELL,UR MOD /LPF
[2019-11-07 14:30] LABS: HYALINE CASTS, URINE OCCASIONAL /HPF
[2019-11-07] MEDS ORDERED: AMOX1TAB61 PO (15:17)
[2019-11-07] MEDS ORDERED: HYDR-3164 PO (15:17)
[2019-11-07 15:30] VITALS: BP 117/71
[2019-11-07] MEDS ORDERED: DIPH,PERTUSS(ACELL),TET VAC/PF 0.5 ML SYRINGE. VAX IM ONE (15:30)
--- NOTE | 2019-11-07 15:56 | EKG ---
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
== END 2019-11-07 15:33 | disposition left against medical advice (07) ==
LOC: ER 11:24
DX: S00.83XA Contusion of other part of head, initial encounter (principal); R07.81 Pleurodynia; R06.02 Shortness of breath; I48.20 Chronic atrial fibrillation, unspecified; J44.9 Chronic obstructive pulmonary disease, unspecified; I50.9 Heart failure, unspecified; F17.200 Nicotine dependence, unspecified, uncomplicated; F12.90 Cannabis use, unspecified, uncomplicated; Z90.49 Acquired absence of other specified parts of digestive tract; Z98.890 Other specified postprocedural states; Y04.0XXA Assault by unarmed brawl or fight, initial encounter; Y93.89 Activity, other specified; Y92.89 Other specified places as the place of occurrence of the external cause; Y99.8 Other external cause status
CPT/HCPCS: 36415; 70450; 70486; 71111; 72072; 72125; 80053; 80307; 81001; 83690; 83880; 84484; 85025; 85610; 87086; 90471; 90715; 93005; 94640; 96365; 96375; 99285; G0238; J3010; J3490; J7613

== ENCOUNTER 2020-05-18 15:00 | Inpatient (IN) | payer SELFPAY ==
[~2020-05-18] VITALS: Ht 165.1 cm; Wt 75.7 kg
[~2020-05-18 15:00] MED LIST changes: +AMOX1TAB61 PO
[2020-05-18 15:29] LABS: BASO # 0.1 x10^3/uL (0.0-0.2); BASO % 1 % (0-3); EOS # 0.1 x10^3/uL (0.0-0.7); EOS % 2 % (0-3); HEMATOCRIT 43.6 % (36.0-47.0); HEMOGLOBIN 14.6 g/dL (12.0-15.5); LYMPH % 28 % (24-48); MEAN CORPUSCULAR HEMOGLOBIN 30 pg (25-35); MEAN CORPUSCULAR HGB CONC 34 g/dL (31-37); MEAN CORPUSCULAR VOLUME 90 fL (79-100); MONO # 0.8 x10^3/uL (0.0-1.1); MONO % 11 % (0-9); NEUT # 4.2 x10^3/uL (1.8-7.7); NEUT % 59 % (31-73); PLATELET COUNT 238 x10^3/uL (140-400); RED BLOOD COUNT 4.85 x10^6/uL (3.50-5.40); RED CELL DISTRIBUTION WIDTH 16.9 % (11.5-14.5); WHITE BLOOD COUNT 7.1 x10^3/uL (4.0-11.0)
[2020-05-18] MEDS ORDERED: ASPIRIN 325 MG TABLET PO ONE (15:30)
[2020-05-18] MEDS ORDERED: MORPHINE SULFATE 4 MG/ML VIAL. IV/SQ PRN ×2 (15:30)
[2020-05-18] MEDS ORDERED: NITROGLYCERIN SUBLINGUAL 0.4 MG BOTTLE OF 25. SL PRN (15:30)
[2020-05-18 15:41] LABS: PROTHROMBIN TIME PATIENT 14.6 SEC (11.7-14.0)
--- NOTE | 2020-05-18 15:41 | RAD ---
AP chest. HISTORY: Chest pain AP view was taken of the chest. The heart is enlarged. There are bilateral pleural effusions. There a re interstitial changes from infiltrates or pulmonary edema. IMPRESSION: 1. Cardiomegaly with bilateral effusions and interstitial changes most consistent with heart failure and pulmonary edema although atypical pneumonia or viral pneumonia would be possible. Electronically signed by: Derick Caruso MD (05/18/2020 3:38 PM) [facility]
[2020-05-18 15:42] LABS: CALCIUM 8.3 mg/dL (8.5-10.1); CREATININE 1.1 mg/dL (0.6-1.0); POTASSIUM 3.1 mmol/L (3.5-5.1)
--- NOTE | 2020-05-18 15:42 | PHYS DOC ---
Past Medical History Past Medical History: A-Fib, CHF, COPD (GEMINI KIDD APRN) Past Surgical History: No Surgical History, Cholecystectomy, Other Additional Past Surgical Histo: R rotator cuff (GEMINI KIDD APRN) Smoking Status: Current Every Day Smoker Additional Information: 2 PPD Alcohol Use: None Drug Use: Marijuana (GEMINI KIDD APRN) General Adult EDM: Chief Complaint: CHEST PAIN HPI: HPI: Patient is a 64 year old female with history of COPD, CHF, A. fib, who presents to the ED today complaining of 6 out of 10 sharp left-sided chest pain on and off since 11 AM this morning with shortness of breath. Patient denies anything specifically exacerbating or relieving the pain. She states she has a chronic cough. Denies any fever. Denies any pain radiating to bilateral upper extremities. Denies any pain radiating to the neck. (GEMINI KIDD APRN) Review of Systems: Review of Systems: Constitutional: Denies fever or chills. [] Eyes: Denies change in visual acuity. [] HENT: Denies nasal congestion or sore throat. [] Respiratory: Denies cough or shortness of breath. [] Cardiovascular: Reports left-sided chest pain GI: Denies abdominal pain, nausea, vomiting, bloody stools or diarrhea. [] : Denies dysuria. [] Musculoskeletal: Denies back pain or joint pain. [] Integument: Denies rash. [] Neurologic: Denies headache, focal weakness or sensory changes. [] Psychiatric: Denies depression or anxiety. [] (GEMINI KIDD APRN) Heart Score: HEART Score for Chest Pain: HEART Score for Chest Pain Response (Comments) Value History Slighlty/Non-Suspicious 0 ECG Normal 0 Age >45 - < 65 1 Risk Factors 1 or 2 Risk Factors 1 Troponin < Normal Limit 0 Total 2 Risk Factors: Risk Factors: DM, Current or recent (<one month) smoker, HTN, HLP, family history of CAD, obesity. Risk Scores: Score 0 - 3: 2.5% MACE over next 6 weeks - Discharge Home Score 4 - 6: 20.3% MACE over next 6 weeks - Admit for Clinical Observation Score 7 - 10: 72.7% MACE over next 6 weeks - Early Invasive Strategies (GEMINI KIDD APRN) Current Medications: Current Medications Medications (Trade) Dose Ordered Sig/Gonzales Start Time Stop Time Status Last Admin Dose Admin Aspirin (Bill Aspirin) 325 mg 1X ONCE 05/18/20 15:30 05/18/20 15:31 DC 05/18/20 15:33 325 MG Morphine Sulfate (Morphine Sulfate) 4 mg PRN Q15MIN PRN 05/18/20 15:30 05/19/20 15:29 Nitroglycerin (Nitrostat) 0.4 mg PRN Q5MIN PRN 05/18/20 15:30 05/19/20 15:29 05/18/20 15:34 0.4 MG (ROXANNEAGEMINI WHEEL MILL OPERATOR) Allergies: Allergies: Allergies Coded Allergies Type Severity Reaction Last Updated Verified No Known Drug Allergies 09/27/14 No (GEMINI KIDD APRN) Physical Exam: PE: Constitutional: Well developed, well nourished, no acute distress, non-toxic appearance. [] HENT: Normocephalic, atraumatic, bilateral external ears normal, oropharynx moist, no oral exudates, nose normal. [] Eyes: PERRLA, EOMI, conjunctiva normal, no discharge. [] Neck: Normal range of motion, no tenderness, supple, no stridor. [] Cardiovascular:Heart rate regular rhythm, no murmur [] Lungs & Thorax: Crackles noted on exam Abdomen: Bowel sounds normal, soft, no tenderness, no masses, no pulsatile masses. [] Skin: Warm, dry, no erythema, no rash. [] Back: No tenderness, no CVA tenderness. [] Extremities: No tenderness, no cyanosis, no clubbing, ROM intact, no edema. [] Neurologic: Alert and oriented X 3, normal motor function, normal sensory function, no focal deficits noted. [] Psychologic: Affect normal, judgement normal, mood normal. [] (GEMINI KIDD WHEEL MILL OPERATOR) Current Patient Data: Labs: Laboratory Tests Test 05/18/20 15:10 White Blood Count 7.1 x10^3/uL (4.0-11.0) Red Blood Count 4.85 x10^6/uL (3.50-5.40) Hemoglobin 14.6 g/dL (12.0-15.5) Hematocrit 43.6 % (36.0-47.0) Mean Corpuscular Volume 90 fL (79-100) Mean Corpuscular Hemoglobin 30 pg (25-35) Mean Corpuscular Hemoglobin Concent 34 g/dL (31-37) Red Cell Distribution Width 16.9 % (11.5-14.5) H Platelet Count 238 x10^3/uL (140-400) Neutrophils (%) (Auto) 59 % (31-73) Lymphocytes (%) (Auto) 28 % (24-48) Monocytes (%) (Auto) 11 % (0-9) H Eosinophils (%) (Auto) 2 % (0-3) Basophils (%) (Auto) 1 % (0-3) Neutrophils # (Auto) 4.2 x10^3/uL (1.8-7.7) Lymphocytes # (Auto) 2.0 x10^3/uL (1.0-4.8) Monocytes # (Auto) 0.8 x10^3/uL (0.0-1.1) Eosinophils # (Auto) 0.1 x10^3/uL (0.0-0.7) Basophils # (Auto) 0.1 x10^3/uL (0.0-0.2) Laboratory Tests 05/18/20 15:10 Vital Signs: Vital Signs Date Time Temp Pulse Resp B/P (MAP) Pulse Ox O2 Delivery O2 Flow Rate FiO2 05/18/20 15:34 110 136/100 05/18/20 15:34 26 99 Nasal Cannula 2.0 05/18/20 15:18 97.8 97.8 (GEMINI KIDD APRN) EKG: EK interpreted by Dr. Small sinus tachycardia heart rate 107 no STEMI [] (GEMINI KIDD APRN) Radiology/Procedures: Radiology/Procedures: [] PATIENT: DEENA VALLADARES ACCOUNT: [id number] : 1955 LOCATION: ER AGE: 64 SEX: F EXAM STATUS: PRE ER ORD. PHYSICIAN: GEMINI KIDD APRN REASON: chest pain PROCEDURE: PORTABLE CHEST 1V AP chest. HISTORY: Chest pain AP view was taken of the chest. The heart is enlarged. There are bilateral pleural effusions. There are interstitial changes from infiltrates or pulmonary edema. IMPRESSION: 1. Cardiomegaly with bilateral effusions and interstitial changes most consistent with heart failure and pulmonary edema although atypical pneumonia or viral pneumonia would be possible. Electronically signed by: Derick Caruso MD (05/18/2020 3:38 PM) [facility] DICTATED and SIGNED BY: DERICK CARUSO MD DATE: 05/18/20 [id number] 0 (GEMINI KIDD APRN) Course & Med Decision Making: Course & Med Decision Making Pertinent Labs and Imaging studies reviewed. (See chart for details) This is a 64-year-old female patient presented to the ED today complaining of left-sided chest pain that began today with SOA. Patient had to be put on oxygen by EMS because she was satting at 88% on room air. She is currently on 2 L at 99%. She is afebrile. She was tested for COVID-19. EKG is negative, troponin is normal, chest x-ray noted for CHF, BNP 16,945, CBC with no acute findings, CMP with potassium of 3.04, patient was given oral potassium replacement. Patient had stated she sees Dr. Sascha Munguia, I called Dr. Munguia, he stated he felt this patient a while back. Spoke with Dr. Mckee who accepted patient for admission Routine consult placed for cardiology Given Lasix 40 mg IV and potassium 40 mEq (GEMINI KIDD APRN) Dragon Disclaimer: Dragon Disclaimer: This electronic medical record was generated, in whole or in part, using a voice recognition dictation system. (GEMINI KIDD APRN) Departure Departure Impression: Primary Impression: CHF exacerbation Qualified Codes: I50.9 - Heart failure, unspecified Additional Impressions: Chest pain Qualified Codes: R07.9 - Chest pain, unspecified Shortness of breath Disposition: ADMITTED INPT THIS HOSP Condition: STABLE Scripts Furosemide (FUROSEMIDE) 40 Mg Tablet 40 MG PO DAILY for heart failure for 30 Days, #30 TAB Prov: SUSANNAH WOOD MD 05/22/20 Metoprolol Tartrate (METOPROLOL TARTRATE) 25 Mg Tablet 25 MG PO BID for afib for 30 Days, #60 TAB Prov: SUSANNAH WOOD MD 05/22/20 Apixaban (ELIQUIS) 5 Mg Tablet 5 MG PO BID for afib for 30 Days, #60 TAB Prov: SUSANNAH WOOD MD 05/22/20 Attending Signature Attending Signature I have reviewed the PA/LINK AND LINK KNITTING MACHINE OPERATOR's note and plan of care. I was available for consultation as needed during the patient's visit in the emergency department. I agree with the clinical impression, plan, and disposition. (APPLE SMALL DO) GEMINI KIDD APRN May 18, 2020 15:41 APPLE SMALL DO May 23, 2020 07:30
[2020-05-18 15:55] LABS: ALBUMIN 2.7 g/dL (3.4-5.0); ALBUMIN/GLOBULIN RATIO 0.7 (1.0-1.7); MAGNESIUM 2.1 mg/dL (1.8-2.4); TOTAL BILIRUBIN 0.5 mg/dL (0.2-1.0); TOTAL PROTEIN 6.7 g/dL (6.4-8.2)
[2020-05-18] MEDS ORDERED: POTASSIUM CHLORIDE 20 MEQ TABLET.ER. PO ONE (16:45)
[2020-05-18] MEDS ORDERED: FUROSEMIDE 40 MG/4 ML VIAL. IVP ONE (16:45)
[2020-05-18] MEDS ORDERED: ONDANSETRON PF 4 MG/2 ML VIAL. IV PRN (18:00)
[2020-05-18] MEDS ORDERED: MORPHINE SULFATE 2 MG/ML VIAL. IV PRN (18:00)
[2020-05-18] MEDS ORDERED: ACETAMINOPHEN 325 MG TABLET. PO PRN ×2 (18:00→19:00)
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
[2020-05-18] MEDS ORDERED: BISACODYL 10 MG SUPP.RECT. PR PRN (19:00)
[2020-05-18] MEDS ORDERED: NICOTINE 21MG PATCH. TD PRN (19:00)
[2020-05-18] MEDS ORDERED: MAG HYDROX/ALUMINUM HYD/SIMETH 30 ML ORAL.SUSP PO PRN (19:00)
[2020-05-18] MEDS ORDERED: WARFARIN 5 MG TABLET. PO ONE (19:00)
[2020-05-18] MEDS ORDERED: CALCIUM CARBONATE 500 MG TAB.CHEW PO PRN (19:00)
[2020-05-18] MEDS ORDERED: ONDANSETRON PF 4 MG/2 ML VIAL. IVP PRN (19:00)
[2020-05-18] MEDS: HYDROcodone/APAP 5/325MG 1 TAB TABLET PO PRN (19:19)
[2020-05-18 19:53] LABS: BILIRUBIN,URINE NEGATIVE (NEG); CLARITY,URINE CLEAR; COLOR,URINE YELLOW; NITRITE,URINE POSITIVE (NEG); PROTEIN,URINE 100 mg/dL (NEG-TRACE); UROBILINOGEN,URINE 0.2 mg/dL (0.2 mg/dL)
[2020-05-18 19:58] LABS: BACTERIA,URINE MANY /HPF (0-FEW); BARBITURATES NEG (NEG); BENZODIAZEPINES NEG (NEG); CANNABINOIDS POS (NEG); COCAINE NEG (NEG); HYALINE CASTS, URINE FEW /HPF; METHADONE NEG (NEG); OPIATES POS (NEG); PHENCYCLIDINE NEG (NEG); RBC,URINE OCC /HPF (0-2); WBC,URINE 20-40 /HPF (0-4)
[2020-05-18 19:59] LABS: AMPHETAMINE/METHAMPHETAMINE POS (NEG)
[2020-05-18 20:10] VITALS: BP 126/92
[2020-05-18 23:35] VITALS: BP 116/90
[2020-05-19] MEDS: ALPRAZolam 0.5 MG TABLET PO PRN ×2 (00:09→12:07)
[2020-05-19] MEDS: CYCLOBENZAPRINE 10 MG TABLET. PO SCH ×4 (00:09→20:30)
[2020-05-19] MEDS: ZOLPIDEM 5 MG TABLET. PO PRN (00:12)
[2020-05-19 03:15] VITALS: BP 102/88
[2020-05-19 07:00] VITALS: BP 90/72
[2020-05-19 08:34] LABS: BASO # 0.1 x10^3/uL (0.0-0.2); BASO % 1 % (0-3); EOS # 0.2 x10^3/uL (0.0-0.7); EOS % 2 % (0-3); HEMATOCRIT 45.3 % (36.0-47.0); HEMOGLOBIN 14.7 g/dL (12.0-15.5); LYMPH % 30 % (24-48); MEAN CORPUSCULAR HEMOGLOBIN 30 pg (25-35); MEAN CORPUSCULAR HGB CONC 32 g/dL (31-37); MEAN CORPUSCULAR VOLUME 91 fL (79-100); MONO # 0.7 x10^3/uL (0.0-1.1); MONO % 11 % (0-9); NEUT # 3.9 x10^3/uL (1.8-7.7); NEUT % 56 % (31-73); PLATELET COUNT 220 x10^3/uL (140-400); RED BLOOD COUNT 4.99 x10^6/uL (3.50-5.40); RED CELL DISTRIBUTION WIDTH 17.4 % (11.5-14.5); WHITE BLOOD COUNT 6.8 x10^3/uL (4.0-11.0)
[2020-05-19 08:59] LABS: ALBUMIN 2.6 g/dL (3.4-5.0); ALBUMIN/GLOBULIN RATIO 0.7 (1.0-1.7); CALCIUM 8.2 mg/dL (8.5-10.1); CREATININE 1.1 mg/dL (0.6-1.0); POTASSIUM 4.2 mmol/L (3.5-5.1); TOTAL BILIRUBIN 0.3 mg/dL (0.2-1.0); TOTAL PROTEIN 6.6 g/dL (6.4-8.2)
[2020-05-19] MEDS ORDERED: FLU VACC QS 2020-21(6MOS+)/PF 0.5 ML SYRINGE. VAX IM ONE (09:00)
[2020-05-19] MEDS: HYDROcodone/APAP 5/325MG 1 TAB TABLET PO PRN ×2 (09:06→20:30)
[2020-05-19] MEDS: FUROSEMIDE 40 MG TABLET. PO SCH (09:07)
[2020-05-19] MEDS: POTASSIUM CHLORIDE 20 MEQ TABLET.ER. PO SCH (09:09)
[2020-05-19 11:00] VITALS: BP 111/91
--- NOTE | 2020-05-19 11:13 | PDOC2 ---
LOUISTYLER HANEY MARTHA 05/19/20 1113: CARDIAC CONSULT DATE OF CONSULT Date of Consult DATE: 05/19/20 TIME: 11:06 REASON FOR CONSULT Reason for Consult: CHF REFERRING PHYSICIAN Referring Physician: Ria Moses APRN SOURCE Source: Chart review, Patient HISTORY OF PRESENT ILLNESS HISTORY OF PRESENT ILLNESS This is a 64 yo female who presented secondary to shortness of breath and shortness of breath and palpitations. Patient reports she has been short of breath for the last year. Has been worse here recently. Reports tightness in her central chest. Has difficulty taking a deep as she is short of air. Has also developed LE edema bilaterally. Denies any dizziness, diaphoresis, or nausea/vomiting. Unfortunately, was unable to afford medical insurance following passing of in 2019. Has not taken any medication in the last 8 month or so. Does have a history of AFIB, CHF, and COPD. Continues to smoke. PAST MEDICAL HISTORY Past Medical History Cardiovascular: AFIB, CHF, HTN, Pulmonary: COPD CENTRAL NERVOUS SYSTEM: Other (No pertinent history) GI: No pertinent hx Heme/Onc: Other (chronic anticoagulation) Musculoskeletal: Osteoarthritis Rheumatologic: No pertinent hx Infectious disease: No pertinent hx ENT: No pertinent hx Renal/: No pertinent hx Endocrine: No pertinent hx Dermatology: No pertinent hx PAST SURGICAL HISTORY Past Surgical History Other (RTC repair) FAMILY HISTORY Family History: Diabetes, Heart Disease SOCIAL HISTORY Social History Smoke: <1 pack per day ALCOHOL: none Drugs: None Lives: alone CURRENT MEDICATIONS CURRENT MEDICATIONS Current Medications Medications (Trade) Dose Ordered Sig/Gonzales Route PRN Reason Start Time Stop Time Status Last Admin Dose Admin Morphine Sulfate (Morphine Sulfate) 4 mg PRN Q15MIN PRN IV/SQ PAIN GREATER THAN 3/10 05/18/20 15:30 05/19/20 15:29 05/18/20 15:34 Aspirin (Bill Aspirin) 325 mg 1X ONCE PO 05/18/20 15:30 05/18/20 15:31 DC 05/18/20 15:33 Nitroglycerin (Nitrostat) 0.4 mg PRN Q5MIN PRN SL CP RATING > 1/10 05/18/20 15:30 05/19/20 15:29 05/18/20 15:34 Potassium Chloride (Klor-Con) 40 meq 1X ONCE PO 05/18/20 16:45 05/18/20 16:46 DC 05/18/20 18:10 Furosemide (Lasix) 40 mg 1X ONCE IVP 05/18/20 16:45 05/18/20 16:46 DC 05/18/20 18:10 Enoxaparin Sodium (Lovenox 100mg Syringe) 90 mg BID SQ 05/18/20 21:00 05/19/20 09:05 Warfarin Sodium (Coumadin) 5 mg 1X WARF ONCE PO 05/18/20 19:00 05/18/20 19:01 DC 05/18/20 19:17 Alprazolam (Xanax) 0.5 mg PRN Q8HRS PRN PO ANXIETY / AGITATION 05/18/20 19:00 05/19/20 00:09 Cyclobenzaprine HCl (Flexeril) 10 mg TID PO 05/18/20 21:00 05/19/20 09:06 Diltiazem HCl (Cardizem 24hr Cd) 120 mg DAILY PO 05/19/20 09:00 05/19/20 09:06 Acetaminophen/ Hydrocodone Bitart (Lortab 5/325) 1 tab PRN Q6HRS PRN PO MODERATE TO SEVERE PAIN 05/18/20 19:00 05/19/20 09:06 Furosemide (Lasix) 40 mg DAILY PO 05/19/20 09:00 05/19/20 09:07 Potassium Chloride (Klor-Con) 20 meq DAILY PO 05/19/20 09:00 05/19/20 09:09 Nicotine (Nicoderm Cq 21mg) 1 patch PRN DAILY PRN TD SMOKING CESSATION 05/18/20 19:00 05/19/20 00:10 Zolpidem Tartrate (Ambien) 5 mg PRN QHS PRN PO INSOMNIA, MAY REPEAT IN 1HR 05/18/20 19:00 05/19/20 00:12 Influenza Virus Vaccine Quadrival (Fluzone Quad [id number] Syringe) 0.5 ml ONCE ONCE VAX IM 05/19/20 09:00 05/19/20 09:01 DC 05/19/20 09:09 ALLERGIES ALLERGIES: Coded Allergies: No Known Drug Allergies (Unverified , 09/27/14) ROS Review of System 14 point ROS conducted with pertinent positives noted above in HPI PHYSICAL EXAM PHYSICAL EXAM General: Alert, Oriented X3, Cooperative, Mild distress HEENT: Atraumatic, Mucous membr. moist/pink Lungs: Other (bibasilar crackles Heart: Other (AFIB; 4/6 systolic murmur) Abdomen: Soft, No tenderness Extremities: No cyanosis, 1-2+ bilateral LE patel a Skin: No breakdown, No significant lesion Neuro: Normal speech, Sensation intact Psych/Mental Status: Mental status NL, Mood NL MUSCULOSKELETAL: Osteoarthritic changes both hands VITALS/I&O VITALS/I&O: Vital Signs Date Time Temp Pulse Resp B/P (MAP) Pulse Ox O2 Delivery O2 Flow Rate FiO2 05/19/20 10:06 17 94 Nasal Cannula 4.0 05/19/20 09:06 98 90/72 05/19/20 07:00 95.6 95.6 I & O 05/18/20 05/18/20 05/19/20 15:00 23:00 07:00 Intake Total 250 ml Output Total 200 ml Balance 50 ml LABS Lab: Laboratory Tests Test 05/18/20 15:10 05/18/20 18:23 05/18/20 19:45 05/19/20 08:15 White Blood Count 7.1 x10^3/uL (4.0-11.0) 6.8 x10^3/uL (4.0-11.0) Red Blood Count 4.85 x10^6/uL (3.50-5.40) 4.99 x10^6/uL (3.50-5.40) Hemoglobin 14.6 g/dL (12.0-15.5) 14.7 g/dL (12.0-15.5) Hematocrit 43.6 % (36.0-47.0) 45.3 % (36.0-47.0) Mean Corpuscular Volume 90 fL (79-100) 91 fL (79-100) Mean Corpuscular Hemoglobin 30 pg (25-35) 30 pg (25-35) Mean Corpuscular Hemoglobin Concent 34 g/dL (31-37) 32 g/dL (31-37) Red Cell Distribution Width 16.9 % (11.5-14.5) H 17.4 % (11.5-14.5) H Platelet Count 238 x10^3/uL (140-400) 220 x10^3/uL (140-400) Neutrophils (%) (Auto) 59 % (31-73) 56 % (31-73) Lymphocytes (%) (Auto) 28 % (24-48) 30 % (24-48) Monocytes (%) (Auto) 11 % (0-9) H 11 % (0-9) H Eosinophils (%) (Auto) 2 % (0-3) 2 % (0-3) Basophils (%) (Auto) 1 % (0-3) 1 % (0-3) Neutrophils # (Auto) 4.2 x10^3/uL (1.8-7.7) 3.9 x10^3/uL (1.8-7.7) Lymphocytes # (Auto) 2.0 x10^3/uL (1.0-4.8) 2.0 x10^3/uL (1.0-4.8) Monocytes # (Auto) 0.8 x10^3/uL (0.0-1.1) 0.7 x10^3/uL (0.0-1.1) Eosinophils # (Auto) 0.1 x10^3/uL (0.0-0.7) 0.2 x10^3/uL (0.0-0.7) Basophils # (Auto) 0.1 x10^3/uL (0.0-0.2) 0.1 x10^3/uL (0.0-0.2) Prothrombin Time 14.6 SEC (11.7-14.0) H Prothrombin Time INR 1.2 (0.8-1.1) H Activated Partial Thromboplast Time 27 SEC (24-38) Sodium Level 144 mmol/L (136-145) 146 mmol/L (136-145) H Potassium Level 3.1 mmol/L (3.5-5.1) L 4.2 mmol/L (3.5-5.1) # Chloride Level 107 mmol/L (98-107) 110 mmol/L (98-107) H Carbon Dioxide Level 28 mmol/L (21-32) 29 mmol/L (21-32) Anion Gap 9 (6-14) 7 (6-14) Blood Urea Nitrogen 26 mg/dL (7-20) H 24 mg/dL (7-20) H Creatinine 1.1 mg/dL (0.6-1.0) H 1.1 mg/dL (0.6-1.0) H Estimated GFR (Cockcroft-Gault) 50.0 50.0 BUN/Creatinine Ratio 24 (6-20) H 22 (6-20) H Glucose Level 91 mg/dL (70-99) 97 mg/dL (70-99) Lactic Acid Level 1.2 mmol/L (0.4-2.0) Calcium Level 8.3 mg/dL (8.5-10.1) L 8.2 mg/dL (8.5-10.1) L Magnesium Level 2.1 mg/dL (1.8-2.4) Total Bilirubin 0.5 mg/dL (0.2-1.0) 0.3 mg/dL (0.2-1.0) Aspartate Amino Transferase (AST) 19 U/L (15-37) 18 U/L (15-37) Alanine Aminotransferase (ALT) 22 U/L (14-59) 21 U/L (14-59) Alkaline Phosphatase 73 U/L (46-116) 78 U/L (46-116) Creatine Kinase 78 U/L (26-192) Creatine Kinase MB (Mass) 3.4 ng/mL (0.0-3.6) Creatine Kinase MB Relative Index 4.4 % (0-4) H Troponin I Quantitative 0.035 ng/mL (0.000-0.055) 0.030 ng/mL (0.000-0.055) AK-Jvv-[id number]-Type Natriuretic Peptide 08324 pg/mL (0-124) H 46006 pg/mL (0-124) H Total Protein 6.7 g/dL (6.4-8.2) 6.6 g/dL (6.4-8.2) Albumin 2.7 g/dL (3.4-5.0) L 2.6 g/dL (3.4-5.0) L Albumin/Globulin Ratio 0.7 (1.0-1.7) L 0.7 (1.0-1.7) L Procalcitonin < 0.10 ng/mL (0.00-0.10) Thyroid Stimulating Hormone (TSH) 2.416 uIU/mL (0.358-3.74) Urine Collection Type Unknown Urine Color Yellow Urine Clarity Clear Urine pH 6.0 (<5.0-8.0) Urine Specific [place] 1.015 (1.000-1.030) Urine Protein 100 mg/dL (NEG-TRACE) Urine Glucose (UA) Negative mg/dL (NEG) Urine Ketones (Stick) Negative mg/dL (NEG) Urine Blood Trace (NEG) Urine Nitrite Positive (NEG) Urine Bilirubin Negative (NEG) Urine Urobilinogen Dipstick 0.2 mg/dL (0.2 mg/dL) Urine Leukocyte Esterase Trace (NEG) Urine RBC Occ /HPF (0-2) Urine WBC 20-40 /HPF (0-4) Urine Squamous Epithelial Cells Many /LPF Urine Bacteria Many /HPF (0-FEW) Urine Hyaline Casts Few /HPF Urine Mucus Mod /LPF Urine Opiates Screen Pos (NEG) Urine Methadone Screen Neg (NEG) Urine Barbiturates Neg (NEG) Urine Phencyclidine Screen Neg (NEG) Urine Amphetamine/Methamphetamine Pos (NEG) Urine Benzodiazepines Screen Neg (NEG) Urine Cocaine Screen Neg (NEG) Urine Cannabinoids Screen Pos (NEG) Urine Ethyl Alcohol Neg (NEG) Laboratory Tests 05/18/20 15:10 05/19/20 08:15 Laboratory Tests 05/18/20 15:10 05/19/20 08:15 ECHOCARDIOGRAM ECHOCARDIOGRAM <Conclusion> The left ventricular systolic function is normal and the ejection fraction is within normal range. The Ejection Fraction is 50-55%. Calculated aortic valve area is .95 cm2 with maximum pressure gradient of 57 mmHg and mean pressure gradient of 33 mmHg. Due to afib, the gradient is difficult to calculate but there is likely severe aortic stenosis. Doppler and Color-flow revealed moderate mitral regurgitation. DATE: 10/30/181458 ASSESSMENT/PLAN ASSESSMENT/PLAN 1. Acute on chronic respiratory failure with acute on chronic diastolic CHF. Most probable precipitate by RVR 2. PAFIB with intermittent RVR; previously on Cardizem for rate control and warfarin for stroke prophylaxis. Has been out of meds for approximately 8 mo nths. 3. COPD with continued tobaccoism 4. Severe 5. Noncompliance, financial constraints 6. Tobaccoism; discussed/encouraged cessation 7. PUI; COVID pending Recommendations Dig IV x1 now Cardizem has been resumed. Warfarin resumed. Bridging with Lovenox. Eliquis would be more ideal, but likely not able to afford. Diuresis with monitoring of renal function Echo if COIVD negative to assess LV systolic function, aortic valve Consider OSCAR guided CV if patient remains in AFIB SS consult SUDEEP MENDIOLA MD 05/19/20 2301: CARDIAC CONSULT ASSESSMENT/PLAN ASSESSMENT/PLAN Pt. seen and examiend. 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 Continue rate control. Supportive care. Plan for out pt referral for valve intervention TYLER MYERS APRN May 19, 2020 11:13 SUDEEP MENDIOLA MD May 19, 2020 23:01
[2020-05-19] MEDS ORDERED: DIGOXIN IV 500 MCG/2 ML AMPUL. IV ONE (11:45)
[2020-05-19] MEDS ORDERED: FUROSEMIDE 40 MG/4 ML VIAL. IVP ONE (11:45)
[2020-05-19] MEDS ORDERED: VANCOMYCIN PER PHARMACY MC PRN (12:15)
[2020-05-19] MEDS ORDERED: VANCOMYCIN 2 GM in IV NORMAL SALINE 500ML BAG 500 ML IV ONE (12:30)
[2020-05-19 15:00] VITALS: BP 102/69
[2020-05-19] MEDS ORDERED: WARFARIN 5 MG TABLET. PO ONE (16:00)
--- NOTE | 2020-05-19 16:19 | NUR ---
SS following for discharge planning. SS reviewed pt chart and discussed with pt RN. Pt is from home and is currently requiring nasal canula oxygen at two liters. COVID19 test pending. Pt positive for Marijuana, Meth, and Opiates. Self pay. PAT team referral made for assessment and recommendations. SS will continue to follow for discharge planning.
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
--- NOTE | 2020-05-19 17:48 | NUR ---
Pharmacy Vancomycin Dosing Note S:Consulted to monitor and dose vancomycin started 05/19/20. O:DEENA VALLADARES is a 64 year old F with Bacteremia . Height: 5 feet, 5 inches Weight: 78.9 kg [place] Body Weight: 57.00 Adjusted Body Weight: 65.76 Dosing Weight: Actual Other Antibiotics: LABS: Last BUN: 24 Last Creatinine: 1.1 Creatinine Clearance: 53 mL/min Last WBC: 6.8 Last Procalcitonin: Tmax (past 24 hours): 98 Microbiology: 05/19 GPC 05/11 BOTTLE I/O: Drug Levels: Last level: on at Last dose given 05/19/20 at 1233 Vancomycin Dosing: Loading Dose: 2000 mg x1 Dosing Weight: Actual Target Trough: 15-20 A: Based on: WEIGHT, CRCL~53 P: 1. INITIATE Vancomycin 1250 mg IV q24h AFTER 2000 MG LOADING DOSE 2. Follow up Trough level on 05/21/20 at 1200 3. Pharmacy will continue to monitor, follow and adjust therapy as needed. JIGNA JIMENEZ [facility], 05/19/20 [id number]
[2020-05-19 19:47] VITALS: BP 146/96
[2020-05-19 23:45] VITALS: BP 123/86
[2020-05-20] MEDS: HYDROcodone/APAP 5/325MG 1 TAB TABLET PO PRN ×3 (01:32→20:13)
[2020-05-20 03:56] VITALS: BP 102/76
[2020-05-20 07:00] VITALS: BP 111/70
[2020-05-20] MEDS: POTASSIUM CHLORIDE 20 MEQ TABLET.ER. PO SCH (08:36)
[2020-05-20] MEDS: FUROSEMIDE 40 MG TABLET. PO SCH (08:36)
[2020-05-20] MEDS: CYCLOBENZAPRINE 10 MG TABLET. PO SCH ×3 (08:36→20:13)
[2020-05-20 11:00] VITALS: BP 112/83
--- NOTE | 2020-05-20 11:30 | NUR ---
SS following up with discharge planning. SS reviewed pt chart and discussed with pt RN. Pt is currently requiring oxygen at five liters nasal canula. Per RN, pt getting diuresed today. Pt on IV Rocephin. PAT team met with pt yesterday for substance use and pt was provided with resources for RADAC and RSI. Self pay. SS spoke with [facility] and was notified that they are trying to reach family at this time. SS will continue to follow for discharge planning.
--- NOTE | 2020-05-20 11:47 | CONS ---
DATE OF CONSULTATION: 05/20/2020 REFERRING PHYSICIAN: Dr. Richards. REASON FOR CONSULTATION: Bacteremia, antibiotic management. HISTORY OF PRESENT ILLNESS: A 64-year-old female with history of AFib, CHF, hypertension, aortic stenosis, COPD, tobaccoism, chronic anticoagulation, DJD, presented with complaints of shortness of breath and palpitation along with chest tightness. She had difficulty breathing and was short of air. She also developed lower extremity edema bilaterally. She denies any symptoms. She denies any fevers, chills, nausea, headache, sore throat, difficulty swallowing. The patient unfortunately was unable to afford medical insurance, following passing of her in 2019. The patient was afebrile with normal white count. Lactate of 1.2. CK of 78. Procalcitonin of less than 0.10. UA showed pyuria, positive nitrite and leukocyte esterase trace. UDS was positive for opiates and methamphetamine. COVID has been sent out. BNP was 15,846. Blood culture done on 05/18/2020, 1/3 bottles is positive for GPC. The patient is started on vancomycin. ID consultation has been requested for antibiotic management. PAST MEDICAL HISTORY: AFib, CHF, aortic stenosis, tobaccoism, DJD, COPD. PAST SURGICAL HISTORY: Cholecystectomy, right shoulder. FAMILY HISTORY: As per HPI. SOCIAL HISTORY: One pack smoking. ETOH: None. Drugs: None. UDS: Positive. CURRENT MEDICATION: IV vancomycin. Other medications reviewed in medication list. ALLERGIES: No known drug allergies. REVIEW OF SYSTEMS: Negative except for above in HPI. PHYSICAL EXAMINATION: VITAL SIGNS: Temperature 97.9, pulse 82, respiratory rate 18, blood pressure 111/70, oxygen saturation 96% on 5 liters O2 by nasal cannula. GENERAL: Alert and oriented x 3 female, lying in bed, in mild distress, on O2. HEENT: Normocephalic, atraumatic, anicteric. No thrush. NECK: Supple. LUNGS: Bilateral crackles. HEART: S1, S2 irregular. Systolic murmur present. ABDOMEN: Soft, nontender, obese. Bowel sounds present. EXTREMITIES: No cyanosis, 1-2+ bilateral lower extremity edema. DERMATOLOGIC: Warm, dry. No generalized rash. NEUROLOGIC: Alert and oriented x 3, grossly nonfocal. PSYCHIATRIC: Cooperative, appropriate mood and affect. MUSCULOSKELETAL: Changes suggestive of DJD, otherwise negative. LABORATORY DATA: WBC 6.8, hemoglobin 14.7, hematocrit 45.3, platelets 220. Sodium 146, potassium 4.2, chloride 110, bicarbonate 29, BUN 24, creatinine 1.1, glucose 97, albumin is 2.6, total protein 6.6. BNP 15,846. TSH is negative. Procalcitonin less than 0.10. MICRO: Urine culture E. coli. Blood culture 1/3 bottles positive for GPC in chains. ID and MICHELLE pending at this time. IMAGING: Chest x-ray, cardiomegaly with bilateral effusion, interstitial changes suggestive of heart failure and pulmonary edema, although atypical pneumonia or viral pneumonia could be possible. IMPRESSION: 1. Bacteremia 1/3 bottles present on admission, GPC in chains, could be a contaminant. 2. Urinary tract infection, Escherichia coli. 3. COVID PUI. 4. Congestive heart failure. 5. Atrial fibrillation. 6. Aortic stenosis. 7. Chronic obstructive pulmonary disease. 8. Tobaccoism. RECOMMENDATIONS: 1. Discontinue IV vancomycin for now, recieved IV Vanc 2 gm loading dose on 05/19. 2. Follow up GPC in blood culture results. 3. Start ceftriaxone. F/U GNR in UC. 4. Follow up COVID PCR. 5. Continue supportive care. 6. Follow up labs and cultures. Discussed with RN. Thank you for allowing me to participate in this patient's care. If you have any questions, do not hesitate to contact me. MIRA BOLIVAR MD DR: GREG/samson JOB#: [id number] / [id number] DEA
[2020-05-20] MEDS: cefTRIAXone IV Push 2 GM VIAL. IVP SCH (12:01)
[2020-05-20 12:04] LABS: PROTHROMBIN TIME PATIENT 15.1 SEC (11.7-14.0)
[2020-05-20 12:07] LABS: CREATININE 1.1 mg/dL (0.6-1.0)
--- NOTE | 2020-05-20 12:10 | NUR ---
Pharmacy Warfarin Dosing Note S:Pharmacy consulted to assist with anticoagulation therapy started with target INR: 2 -3 O:DEENA VALLADARES is a 64 year old F with Atrial Fibrillation LABS: Last INR: 1.2 05/18 Last HGB: 14.7 Last HCT: 45.3 Last PLT: 220 Last dose of 5 mg given on 05/19/20 at 1612 A:INR of 1.2 05/18 is below desired range. Target range for this patient is: 2 -3 P: Warfarin dose: 5 mg Today at 1600 Bridge Therapy: Enoxaparin 1 mg/kg q12h Next INR due 05/21/20 Pharmacy anticoagulation service will continue to follow. EMMA AGARWAL [facility], 05/20/20 1213
--- NOTE | 2020-05-20 12:17 | PDOC ---
TYLER MYERS RADIATOR SPECIALIST 05/20/20 1217: CARDIO Progress Notes Date and Time Date of Service 05/20/20 Time of Evaluation 1215 Subjective Subjective: Other (shortness of breath better) Vitals Vitals Vital Signs Date Time Temp Pulse Resp B/P (MAP) Pulse Ox O2 Delivery O2 Flow Rate FiO2 05/20/20 11:00 97.3 83 22 112/83 (93) 94 Nasal Cannula 5.0 97.3 Weight Weight [ ] Input and Output Intake and Output Intake and Output 05/20/20 07:00 Intake Total 1160 ml Output Total 500 ml Balance 660 ml Intake Oral 1160 ml Output Urine Total 500 ml # Voids 1 Laboratory Labs Laboratory Tests Test 05/20/20 11:35 Prothrombin Time 15.1 SEC (11.7-14.0) Prothromb Time International Ratio 1.2 (0.8-1.1) Microbiology Micro Microbiology 05/18/20 Urine Culture - Preliminary, Resulted 05/18/20 Blood Culture - Preliminary, Resulted NO GROWTH AFTER 1 DAY Physical Exam HEENT: Neck Supple W Full Motion Chest: Symmetric LUNGS: Clear to Auscultation Heart: irregularly irregular (AFIB, rate controlled ) Abdomen: Soft N/T Extremities: Other (1+ bilateral LE edema ) Neurology: alert, oriented, follow commands Assessment Assessment 1. Acute on chronic respiratory failure with acute on chronic diastolic CHF. Most probable precipitate by RVR 2. PAFIB with RVR; rate now controlled on Cardizem 3. COPD with continued tobaccoism 4. Severe 5. Noncompliance, financial constraints 6. Tobaccoism; discussed/encouraged cessation 7. PUI; COVID pending 8. Substance abuse; UDS + meth, marijuana Recommendations Ongoing diuresis with monitoring of renal function Rate controlled with Cardizem. Discontinue warfarin; patient is unable to afford warfarin monitoring and does not have transportation. Will provide with Eliquis samples. Medicaid reportedly to take effect in August Echo if COIVD negative to assess LV systolic function, aortic valve Outpatient referral for aortic valve intervention Supportive care Justicifation of Admission Dx: Justifications for Admission: Justification of Admission Dx: N/A SUDEEP MENDIOLA MD 05/20/20 1645: CARDIO Progress Notes Plan Plan Patient seen and examined. Agree with above nurse practitioner note. Awaiting evaluation with a echocardiogram. Continue aggressive diuresis. Discussed need for medication compliance and refraining from drug abuse. environmental services coordinator consult is ongoing. TYLER MYERS APRN May 20, 2020 12:17 SUDEEP MENDIOLA MD May 20, 2020 16:45
[2020-05-20] MEDS ORDERED: VANCOMYCIN 1.25 GM in IV NORMAL SALINE 250ML 250 ML IV SCH (12:30)
[2020-05-20] MEDS ORDERED: FUROSEMIDE 40 MG/4 ML VIAL. IVP ONE (14:15)
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
[2020-05-20 15:04] VITALS: BP 103/67
[2020-05-20] MEDS ORDERED: WARFARIN 5 MG TABLET. PO ONE (16:00)
[2020-05-20 19:14] VITALS: BP 122/82
[2020-05-20] MEDS: APIXABAN 5 MG TABLET. PO SCH (20:13)
[2020-05-20] MEDS: LACTOBACILLUS RHAMNOSUS GG 1 CAPSULE. PO SCH (20:13)
[2020-05-20 23:30] VITALS: BP 104/75
[2020-05-21 03:53] VITALS: BP 124/65
[2020-05-21 07:00] VITALS: BP 104/66
--- NOTE | 2020-05-21 07:46 | PDOC ---
Infectious Disease Note Vital Signs: Vital Signs Vital Signs Date Time Temp Pulse Resp B/P (MAP) Pulse Ox O2 Delivery O2 Flow Rate FiO2 05/21/20 03:53 98.5 85 16 124/65 (84) 94 Nasal Cannula 5.0 98.5 Physical Exam: PHYSICAL EXAM GENERAL: Alert and oriented x 3 female, lying in bed, in mild distress, on O2. HEENT: Normocephalic, atraumatic, anicteric. No thrush. NECK: Supple. LUNGS: Bilateral crackles. HEART: S1, S2 irregular. Systolic murmur present. ABDOMEN: Soft, nontender, obese. Bowel sounds present. EXTREMITIES: No cyanosis, 1-2+ bilateral lower extremity edema. DERMATOLOGIC: Warm, dry. No generalized rash. NEUROLOGIC: Alert and oriented x 3, grossly nonfocal. PSYCHIATRIC: Cooperative, appropriate mood and affect. MUSCULOSKELETAL: Changes suggestive of DJD, otherwise negative. Medications: Inpatient Meds: Current Medications Medications (Trade) Dose Ordered Sig/Gonzales Start Time Stop Time Status Last Admin Dose Admin Acetaminophen (Tylenol) 650 mg PRN Q6HRS PRN 05/18/20 19:00 Acetaminophen/ Hydrocodone Bitart (Lortab 5/325) 1 tab PRN Q6HRS PRN 05/18/20 19:00 05/20/20 20:13 1 TAB Al Hydroxide/Mg Hydroxide (Mylanta Plus Xs) 30 ml PRN Q3HRS PRN 05/18/20 19:00 Alprazolam (Xanax) 0.5 mg PRN Q8HRS PRN 05/18/20 19:00 05/19/20 12:07 0.5 MG Apixaban (Eliquis) 5 mg BID 05/20/20 21:00 05/20/20 20:13 5 MG Aspirin (Bill Aspirin) 325 mg 1X ONCE 05/18/20 15:30 05/18/20 15:31 DC 05/18/20 15:33 325 MG Bisacodyl (Dulcolax Supp) 10 mg PRN DAILY PRN 05/18/20 19:00 Calcium Carbonate/ Glycine (Tums) 500 mg PRN Q3HRS PRN 05/18/20 19:00 Ceftriaxone Sodium (Rocephin) 2 gm Q24H 05/20/20 12:00 05/20/20 12:01 2 GM Cyclobenzaprine HCl (Flexeril) 10 mg TID 05/18/20 21:00 05/20/20 20:13 10 MG Digoxin (Lanoxin) 250 mcg 1X ONCE 05/19/20 11:45 05/19/20 11:46 DC 05/19/20 12:08 250 MCG Diltiazem HCl (Cardizem 24hr Cd) 120 mg DAILY 05/20/20 09:00 05/20/20 08:36 120 MG Enoxaparin Sodium (Lovenox 100mg Syringe) 90 mg BID 05/18/20 21:00 05/19/20 15:00 DC 05/19/20 09:05 90 MG Enoxaparin Sodium (Lovenox 80mg Syringe) 80 mg Q12HR 05/19/20 21:00 05/20/20 15:21 DC 05/20/20 08:36 80 MG Furosemide (Lasix) 40 mg 1X ONCE 05/20/20 14:15 05/20/20 14:16 DC 05/20/20 14:44 40 MG Influenza Virus Vaccine Quadrival (Fluzone Quad [id number] Syringe) 0.5 ml ONCE ONCE 05/19/20 09:00 05/19/20 09:01 DC 05/19/20 09:09 0.5 ML Lactobacillus Rhamnosus (Culturelle) 1 cap BID 05/20/20 21:00 05/20/20 20:13 1 CAP Morphine Sulfate (Morphine Sulfate) 2 mg PRN Q2HR PRN 05/18/20 18:00 05/19/20 17:59 DC Nicotine (Nicoderm Cq 21mg) 1 patch PRN DAILY PRN 05/18/20 19:00 05/19/20 00:10 1 PATCH Nitroglycerin (Nitrostat) 0.4 mg PRN Q5MIN PRN 05/18/20 15:30 05/19/20 15:29 DC 05/18/20 15:34 0.4 MG Ondansetron HCl (Zofran) 4 mg PRN Q6HRS PRN 05/18/20 19:00 Potassium Chloride (Klor-Con) 20 meq DAILY 05/19/20 09:00 05/20/20 08:36 20 MEQ Vancomycin HCl (Vanco Per Pharmacy) 1 each PRN DAILY PRN 05/19/20 12:15 05/20/20 10:58 DC 05/19/20 17:48 1 EACH Vancomycin HCl 1.25 gm/Sodium Chloride 250 ml @ 167 mls/hr Q24H 05/20/20 12:30 05/20/20 10:57 DC Vancomycin HCl 2 gm/Sodium Chloride 500 ml @ 250 mls/hr ONCE ONCE 05/19/20 12:30 05/19/20 14:29 DC 05/19/20 12:33 250 MLS/HR Warfarin Sodium (Coumadin Per Pharmacy) 1 each PRN DAILY PRN 05/18/20 18:45 05/20/20 15:21 DC 05/20/20 12:09 1 EACH Warfarin Sodium (Coumadin) 5 mg 1X WARF ONCE 05/20/20 16:00 05/20/20 15:21 DC Zolpidem Tartrate (Ambien) 5 mg PRN QHS PRN 05/18/20 19:00 05/19/20 00:12 5 MG Labs: Lab Laboratory Tests Test 05/20/20 11:35 Prothrombin Time 15.1 SEC (11.7-14.0) Prothromb Time International Ratio 1.2 (0.8-1.1) Creatinine 1.1 mg/dL (0.6-1.0) Estimated GFR (Cockcroft-Gault) 50.0 Objective: Assessment: 1. Bacteremia 1/3 bottles present on admission, GPC in chains, could be a contaminant. 2. Urinary tract infection, Escherichia coli. 3. COVID PUI. 4. Congestive heart failure. 5. Atrial fibrillation. 6. Aortic stenosis. 7. Chronic obstructive pulmonary disease. 8. Tobaccoism. Plan: Plan of Care Dose Dapto once today follow up GPC in blood culture results. Continue ceftriaxone. F/U GNR in UC. Covid negative Continue supportive care. Follow up labs and cultures. Discussed with RN. MIRA BOLIVAR MD May 21, 2020 07:46
[2020-05-21] MEDS: LACTOBACILLUS RHAMNOSUS GG 1 CAPSULE. PO SCH ×2 (08:05→21:18)
[2020-05-21] MEDS: HYDROcodone/APAP 5/325MG 1 TAB TABLET PO PRN ×2 (08:06→15:21)
[2020-05-21] MEDS: CYCLOBENZAPRINE 10 MG TABLET. PO SCH ×3 (08:06→21:18)
[2020-05-21] MEDS: FUROSEMIDE 40 MG TABLET. PO SCH (08:06)
[2020-05-21] MEDS: POTASSIUM CHLORIDE 20 MEQ TABLET.ER. PO SCH (08:06)
[2020-05-21] MEDS: APIXABAN 5 MG TABLET. PO SCH ×2 (08:07→21:18)
[2020-05-21] MEDS ORDERED: ANTI-COAG MONITOR BY PHARMACY. MC PRN (09:15)
[2020-05-21 11:00] VITALS: BP 110/73
[2020-05-21] MEDS ORDERED: FUROSEMIDE 40 MG/4 ML VIAL. IVP ONE (11:30)
--- NOTE | 2020-05-21 11:30 | PDOC ---
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 05/21/20 1130: CARDIO Progress Notes Date and Time Date of Service 05/21/20 Time of Evaluation 1120 Subjective Subjective: Other (breathing improved ) Vitals Vitals Vital Signs Date Time Temp Pulse Resp B/P (MAP) Pulse Ox O2 Delivery O2 Flow Rate FiO2 05/21/20 09:06 15 94 Nasal Cannula 3.0 05/21/20 08:06 85 124/65 05/21/20 07:00 96.2 96.2 Weight Weight [ ] Input and Output Intake and Output Intake and Output 05/21/20 07:00 Intake Total 680 ml Output Total 3350 ml Balance -2670 ml Intake Oral 680 ml Output Urine Total 3350 ml Laboratory Labs Laboratory Tests Test 05/20/20 11:35 Prothrombin Time 15.1 SEC (11.7-14.0) Prothromb Time International Ratio 1.2 (0.8-1.1) Creatinine 1.1 mg/dL (0.6-1.0) Estimated GFR (Cockcroft-Gault) 50.0 Microbiology Micro Microbiology 05/18/20 Urine Culture - Final, Complete 05/18/20 Antimicrobic Susceptibility - Final, Complete 05/18/20 Blood Culture - Preliminary, Resulted NO GROWTH AFTER 2 DAYS Physical Exam HEENT: Neck Supple W Full Motion Chest: Symmetric LUNGS: Clear to Auscultation Heart: irregularly irregular (AFIB, rate controlled ) Abdomen: Soft N/T Extremities: Other (1+ bilateral LE edema ) Neurology: alert, oriented, follow commands Assessment Assessment 1. Acute on chronic respiratory failure with acute on chronic diastolic CHF. Most probable precipitate by RVR 2. PAFIB with RVR; rate now controlled on Cardizem 3. COPD with continued tobaccoism 4. Severe 5. Noncompliance, financial constraints 6. Tobaccoism; discussed/encouraged cessation 7. PUI; COVID negative 8. Substance abuse; UDS + meth, marijuana. Reinforced importance of cessation Recommendations Ongoing diuresis with monitoring of renal function Rate controlled with Cardizem. Echo pending Eliquis for stroke prophylaxis. Samples provided along with 30-day free card Outpatient referral for aortic valve intervention Supportive care Justicifation of Admission Dx: Justifications for Admission: Justification of Admission Dx: N/A SUDEEP MENDIOLA MD 05/22/20 0733: CARDIO Progress Notes Plan Plan Late entry for 1/13/21 Pt. seen and examined. 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 She has diuresed well. Continue diuresis for now. She has severe LV dysfunction with severe . Needs valve addressed, she is awaiting social work input to obtain insurance and then can refer to [facility] or [facility] system. Thanks TYLER MYERS APRN May 21, 2020 11:30 SUDEEP MENDIOLA MD May 22, 2020 07:33
[2020-05-21] MEDS: cefTRIAXone IV Push 2 GM VIAL. IVP SCH (12:09)
--- NOTE | 2020-05-21 12:40 | NUR ---
SS following up with discharge planning. SS reviewed pt chart and discussed with pt RN. Pt is currently requiring oxygen at three liters nasal canula. COVID19 negative. Cardiology prescribing Eliquis. Thirty day free trial card provided to pt. Pt being diuresed today. Probable need for six minute walk prior to discharge. Self pay. Pt on IV Rocephin. SS will continue to follow for discharge planning.
--- NOTE | 2020-05-21 14:21 | CARD ---
MR#: [id number] Date of Study: 05/21/2020 Ordering Physician: TYLER MYERS, Referring Physician: TYLER MYERS, Tech: Phoebe Barrett APPROVED REPORT EXAM: Two-dimensional and M-mode echocardiogram with Doppler and color Doppler. Other Information Quality : AverageHR: 80bpm INDICATION Aortic Valve Disease Dyspnea Chest Pain Congestive Heart Failure 2D DIMENSIONS Left Atrium(2D)4.2 (1.6-4.0cm)IVSd1.2 (0.7-1.1cm) Aortic Root(2D)3.1 (2.0-3.7cm)LVDd6.0 (3.9-5.9cm) LVOT Diameter2.1 (1.8-2.4cm)PWd1.2 (0.7-1.1cm) LVDs4.7 (2.5-4.0cm)FS (%) 21.7 % SV77.1 mlLVEF(%)43.2 (>50%) Aortic Valve AoV Peak Rakesh.322.5cm/sAoV VTI69.8cm AO Peak GR.41.6mmHgLVOT Peak Rakesh.129.7cm/s LVOT VTI 28.51cmAO Mean GR.28mmHg BRIDGETTE (VMAX)1.15ui4OGY (VTI)1.36cm2 Mitral Valve MV E Kpiqgvau689.5cm/sMV E Peak Gr.116mmHg MV DECEL SOKR117usOG A Ugxybcka05.2cm/s MV WHY50cjO/A Ratio3.3 MVA (PHT)3.42cm2 TDI E/Lateral E'13.4E/Medial E'17.2 Pulmonary Valve PV Peak Lhbpmmud45.0cm/sPV Peak Grad.4mmHg Tricuspid Valve TR P. Hrkenaje546re/sRAP JGXFQCKF8jhSh TR Peak Gr.39iaPyMQZI82svIl LEFT VENTRICLE The Left Ventricle is mildly dilated. There is mild concentric left ventricular hypertrophy. The syst olic function is mildly impaired. The Ejection Fraction is 40-45%. Wall motion consistent with conduc tion abnormality. Otherwise, mild global hypokinesis. Tissue Doppler imaging reveals moderate left ve ntricular diastolic dysfunction. RIGHT VENTRICLE The right ventricle is mildly dilated. There is normal right ventricular wall thickness. The right ve ntricular systolic function is normal. ATRIA The left atrium is mildly dilated. The right atrium is mildly dilated. The interatrial septum is inta ct with no evidence for an atrial septal defect or patent foramen ovale as noted on 2-D or Doppler im aging. AORTIC VALVE The aortic valve is calcified and displays decreased opening. Doppler and Color Flow revealed trace a ortic regurgitation. Calculated aortic valve area is 1.16 cm2 with maximum pressure gradient of 54 mm Hg and mean pressure gradient of 29 mmHg. There is moderate to severe valvular aortic stenosis. MITRAL VALVE The mitral valve is normal in structure and function. There is no evidence of mitral valve prolapse. There is no mitral valve stenosis. Doppler and Color-flow revealed moderate mitral regurgitation. TRICUSPID VALVE The tricuspid valve is normal in structure and function. Doppler and Color Flow revealed mild tricusp id regurgitation with an estimated PAP of 42 mmHg. There is no tricuspid valve stenosis. PULMONIC VALVE The pulmonary valve is normal in structure and function. Doppler and Color Flow revealed trace pulmon ic valvular regurgitation. There is no pulmonic valvular stenosis. GREAT VESSELS The aortic root is normal in size. The IVC is normal in size and collapses >50% with inspiration. PERICARDIAL EFFUSION There is no evidence of significant pericardial effusion. Critical Notification Critical Value: No <Conclusion> The systolic function is mildly impaired. The Ejection Fraction is 40-45%. Wall motion consistent with conduction abnormality. Otherwise, mild global hypokinesis. Calculated aortic valve area is 1.16 cm2 with maximum pressure gradient of 54 mmHg and mean pressure gradient of 29 mmHg. There is moderate to severe valvular aortic stenosis. Doppler and Color-flow revealed moderate mitral regurgitation. Signed by : Donal Walton, Electronically Approved : 05/21/2020 14:21:08
[2020-05-21 15:00] VITALS: BP 117/89
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
[2020-05-21 18:31] LABS: CREATININE 1.1 mg/dL (0.6-1.0); PROTHROMBIN TIME PATIENT 16.2 SEC (11.7-14.0)
[2020-05-21 19:56] VITALS: BP 104/78
[2020-05-21] MEDS: ZOLPIDEM 5 MG TABLET. PO PRN (21:18)
[2020-05-21] MEDS: ALPRAZolam 0.5 MG TABLET PO PRN (21:18)
[2020-05-21 22:14] VITALS: BP 112/73
[2020-05-22 02:10] VITALS: BP 108/69
[2020-05-22 07:00] VITALS: BP 121/71
--- NOTE | 2020-05-22 08:09 | PDOC ---
Infectious Disease Note Subjective: Subjective Patient states she feels a little better today Shortness of breath and cough has improved Currently on 3 L O2 by nasal cannula Swelling over both lower extremities are improving Vital Signs: Vital Signs Vital Signs Date Time Temp Pulse Resp B/P (MAP) Pulse Ox O2 Delivery O2 Flow Rate FiO2 05/22/20 02:10 98.4 96 16 108/69 (82) 96 Nasal Cannula 3.0 98.4 Physical Exam: PHYSICAL EXAM GENERAL: Alert and oriented x 3 female, lying in bed, in mild distress, on O2. HEENT: Normocephalic, atraumatic, anicteric. No thrush. NECK: Supple. LUNGS: Bilateral crackles. HEART: S1, S2 irregular. Systolic murmur present. ABDOMEN: Soft, nontender, obese. Bowel sounds present. EXTREMITIES: No cyanosis, 1-2+ bilateral lower extremity edema. DERMATOLOGIC: Warm, dry. No generalized rash. NEUROLOGIC: Alert and oriented x 3, grossly nonfocal. PSYCHIATRIC: Cooperative, appropriate mood and affect. MUSCULOSKELETAL: Changes suggestive of DJD, otherwise negative. Medications: Inpatient Meds: Current Medications Medications (Trade) Dose Ordered Sig/Gonzales Start Time Stop Time Status Last Admin Dose Admin Acetaminophen (Tylenol) 650 mg PRN Q6HRS PRN 05/18/20 19:00 Acetaminophen/ Hydrocodone Bitart (Lortab 5/325) 1 tab PRN Q6HRS PRN 05/18/20 19:00 05/21/20 15:21 1 TAB Al Hydroxide/Mg Hydroxide (Mylanta Plus Xs) 30 ml PRN Q3HRS PRN 05/18/20 19:00 Alprazolam (Xanax) 0.5 mg PRN Q8HRS PRN 05/18/20 19:00 05/21/20 21:18 0.5 MG Apixaban (Eliquis) 5 mg BID 05/20/20 21:00 05/21/20 21:18 5 MG Aspirin (Bill Aspirin) 325 mg 1X ONCE 05/18/20 15:30 05/18/20 15:31 DC 05/18/20 15:33 325 MG Bisacodyl (Dulcolax Supp) 10 mg PRN DAILY PRN 05/18/20 19:00 Calcium Carbonate/ Glycine (Tums) 500 mg PRN Q3HRS PRN 05/18/20 19:00 Ceftriaxone Sodium (Rocephin) 2 gm Q24H 05/20/20 12:00 05/21/20 12:09 2 GM Cyclobenzaprine HCl (Flexeril) 10 mg TID 05/18/20 21:00 05/21/20 21:18 10 MG Digoxin (Lanoxin) 250 mcg 1X ONCE 05/19/20 11:45 05/19/20 11:46 DC 05/19/20 12:08 250 MCG Diltiazem HCl (Cardizem 24hr Cd) 120 mg DAILY 05/20/20 09:00 05/21/20 08:06 120 MG Enoxaparin Sodium (Lovenox 100mg Syringe) 90 mg BID 05/18/20 21:00 05/19/20 15:00 DC 05/19/20 09:05 90 MG Enoxaparin Sodium (Lovenox 80mg Syringe) 80 mg Q12HR 05/19/20 21:00 05/20/20 15:21 DC 05/20/20 08:36 80 MG Furosemide (Lasix) 40 mg 1X ONCE 05/21/20 11:30 05/21/20 11:33 DC 05/21/20 12:09 40 MG Influenza Virus Vaccine Quadrival (Fluzone Quad Syringe) 0.5 ml ONCE ONCE 05/19/20 09:00 05/19/20 09:01 DC 05/19/20 09:09 0.5 ML Info (Anti-Coagulation Monitoring By Pharmacy) 1 each PRN DAILY PRN 05/21/20 09:15 05/21/20 09:08 1 EACH Lactobacillus Rhamnosus (Culturelle) 1 cap BID 05/20/20 21:00 05/21/20 21:18 1 CAP Morphine Sulfate (Morphine Sulfate) 2 mg PRN Q2HR PRN 05/18/20 18:00 05/19/20 17:59 DC Nicotine (Nicoderm Cq 21mg) 1 patch PRN DAILY PRN 05/18/20 19:00 05/19/20 00:10 1 PATCH Nitroglycerin (Nitrostat) 0.4 mg PRN Q5MIN PRN 05/18/20 15:30 05/19/20 15:29 DC 05/18/20 15:34 0.4 MG Ondansetron HCl (Zofran) 4 mg PRN Q6HRS PRN 05/18/20 19:00 Potassium Chloride (Klor-Con) 20 meq DAILY 05/19/20 09:00 05/21/20 08:06 20 MEQ Vancomycin HCl (Vanco Per Pharmacy) 1 each PRN DAILY PRN 05/19/20 12:15 05/20/20 10:58 DC 05/19/20 17:48 1 EACH Vancomycin HCl 1.25 gm/Sodium Chloride 250 ml @ 167 mls/hr Q24H 05/20/20 12:30 05/20/20 10:57 DC Vancomycin HCl 2 gm/Sodium Chloride 500 ml @ 250 mls/hr ONCE ONCE 05/19/20 12:30 05/19/20 14:29 DC 05/19/20 12:33 250 MLS/HR Warfarin Sodium (Coumadin Per Pharmacy) 1 each PRN DAILY PRN 05/18/20 18:45 05/20/20 15:21 DC 05/20/20 12:09 1 EACH Warfarin Sodium (Coumadin) 5 mg 1X WARF ONCE 05/20/20 16:00 05/20/20 15:21 DC Zolpidem Tartrate (Ambien) 5 mg PRN QHS PRN 05/18/20 19:00 05/21/20 21:18 5 MG Labs: Lab Laboratory Tests Test 05/21/20 18:13 Prothrombin Time 16.2 SEC (11.7-14.0) Prothromb Time International Ratio 1.3 (0.8-1.1) Creatinine 1.1 mg/dL (0.6-1.0) Estimated GFR (Cockcroft-Gault) 50.0 Objective: Assessment: 1. Strep pneumo bacteremia present on admission 2. Urinary tract infection, Escherichia coli. 3. COVID PUI. 4. Congestive heart failure. 5. Atrial fibrillation. 6. Aortic stenosis. 7. Chronic obstructive pulmonary disease. 8. Tobaccoism. Plan: Plan of Care Continue ceftriaxone. DC daptomycin Covid negative Continue supportive care. Follow up labs and cultures. MIRA BOLIVAR MD May 22, 2020 08:09
[2020-05-22] MEDS: APIXABAN 5 MG TABLET. PO SCH (08:41)
[2020-05-22] MEDS: LACTOBACILLUS RHAMNOSUS GG 1 CAPSULE. PO SCH (08:42)
[2020-05-22] MEDS: CYCLOBENZAPRINE 10 MG TABLET. PO SCH (08:42)
[2020-05-22] MEDS: POTASSIUM CHLORIDE 20 MEQ TABLET.ER. PO SCH (08:42)
[2020-05-22] MEDS: FUROSEMIDE 40 MG TABLET. PO SCH (08:42)
[2020-05-22 11:00] VITALS: BP 120/72
--- NOTE | 2020-05-22 11:39 | PDOC ---
TYLER MYERS WEAVING LOOM OPERATOR 05/22/20 1139: CARDIO Progress Notes Date and Time Date of Service 05/22/20 Time of Evaluation 1130 Subjective Subjective: No Chest Pain, No Palpitations, No Dizziness, Other (breathing improved ) Vitals Vitals Vital Signs Date Time Temp Pulse Resp B/P (MAP) Pulse Ox O2 Delivery O2 Flow Rate FiO2 05/22/20 08:42 96 108/69 05/22/20 07:00 96.8 22 89 Nasal Cannula 3.0 96.8 Weight Weight [ ] Input and Output Intake and Output Intake and Output 05/22/20 07:00 Intake Total 2255 ml Output Total 4100 ml Balance -1845 ml Intake Oral 2255 ml Output Urine Total 4100 ml Laboratory Labs Laboratory Tests Test 05/21/20 18:13 Prothrombin Time 16.2 SEC (11.7-14.0) Prothromb Time International Ratio 1.3 (0.8-1.1) Creatinine 1.1 mg/dL (0.6-1.0) Estimated GFR (Cockcroft-Gault) 50.0 Microbiology Micro Microbiology 05/18/20 Urine Culture - Final, Complete 05/18/20 Antimicrobic Susceptibility - Final, Complete 05/18/20 Blood Culture - Preliminary, Resulted NO GROWTH AFTER 3 DAYS Physical Exam HEENT: Neck Supple W Full Motion Chest: Symmetric LUNGS: Clear to Auscultation Heart: irregularly irregular (AFIB, rate controlled ) Abdomen: Soft N/T Extremities: Other (1+ bilateral LE edema ) Neurology: alert, oriented, follow commands Assessment Assessment 1. Acute on chronic respiratory failure with acute on chronic diastolic/systolic CHF. Echo with LVEF 40-45% with mild global hypokinesis. 2. PAFIB with RVR; rate now controlled on Cardizem 3. COPD with continued tobaccoism 4. Moderate to severe 5. Noncompliance, financial constraints 6. Tobaccoism; discussed/encouraged cessation 7. PUI; COVID negative 8. Substance abuse; UDS + meth, marijuana. Reinforced importance of cessation Recommendations Lasix therapy Discussed 2Gm Na diet, 2000cc FR Rate controlled. Will discontinue Cardizem and start metoprolol for rate control given CMP. Toprol ideal, but will start tartrate for lower cost until her insurance coverage begins Eliquis for stroke prophylaxis. Samples provided along with 30-day free card. Consider outpatient ischemic evaluation Outpatient referral for possible aortic valve intervention Supportive care Follow up in our office with Dr. Walton in August. Contact information provided. Justicifation of Admission Dx: Justifications for Admission: Justification of Admission Dx: N/A SUDEEP WALTON MD 05/22/20 1603: CARDIO Progress Notes Plan Plan Patient seen and examined. Agree with above nurse practitioner note. She feels much better today. Continue diuresis. Continue rate control and anticoagulation. Supportive care for now. Follow-up on an outpatient basis for treatment of her valve disease. I strictly emphasized to the patient regarding cessation of tobacco use and drug use. TYLER MYERS APRN May 22, 2020 11:39 SUDEEP WALTON MD May 22, 2020 16:03
[2020-05-22] MEDS: cefTRIAXone IV Push 2 GM VIAL. IVP SCH (11:56)
[2020-05-22] MEDS: HYDROcodone/APAP 5/325MG 1 TAB TABLET PO PRN (11:56)
[2020-05-22 13:06] LABS: CREATININE 0.9 mg/dL (0.6-1.0)
[2020-05-22 13:14] LABS: PROTHROMBIN TIME PATIENT 16.5 SEC (11.7-14.0)
--- NOTE | 2020-05-22 14:17 | NUR ---
SS following up with discharge planning. Pt is currently requiring oxygen. Six minute walk ordered. Anticipating discharge to home today. Pt agreeable to payment plan for oxygen as she is self pay. SS phoned and faxed clinical to [facility], ; fax [phone]. SS currently awaiting six minute walk results and will proceed accordingly.
[2020-05-22] MEDS ORDERED: METO25TA4 PO (15:01)
[2020-05-22] MEDS ORDERED: FURO40TA4 PO (15:01)
[2020-05-22] MEDS ORDERED: APIX5TAB PO (15:01)
--- NOTE | 2020-05-22 15:34 | NUR ---
SS following up with discharge planning. Six minute walk completed. Script phoned and faxed to [facility], ; fax [phone]. Pt provided with contact information for pt accounts at [facility]. Pt's RN notified.
--- NOTE | 2020-05-22 17:06 | NUR ---
Discharge Note: MORTEZA VALLADARES Discharge instructions and discharge home medications reviewed with Patient and a copy given. All questions have been answered and understanding verbalized. The following instructions and handouts were given: DISCHARGE MEDICATIONS, FOLLOW UP APPOINTMENT, OXYGEN TANK (EDUCATION) Discontinued lines and drains: PERIPHERAL IV DISCONTINUED, DRESSING CLEAN, DRY ANDintact. Patient discharged to HOME with OXYGEN/FRIEND via WHEELCHAIR
[2020-05-22] MEDS ORDERED: METOPROLOL TART IMMED RELEASE 25 MG TABLET. PO SCH (21:00)
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
== END 2020-05-22 17:12 | disposition home or self-care (01) | DRG 291 ==
LOC: ER 15:00 → 2 SOUTH 19:26
PROVIDERS: ADMIT Family Medicine; ATTEND Family Medicine
DX: I11.0 Hypertensive heart disease with heart failure (principal); E43 Unspecified severe protein-calorie malnutrition; J96.21 Acute and chronic respiratory failure with hypoxia; N17.0 Acute kidney failure with tubular necrosis; N39.0 Urinary tract infection, site not specified; R78.81 Bacteremia; I50.43 Acute on chronic combined systolic (congestive) and diastolic (congestive) heart failure; B96.20 Unspecified Escherichia coli [E. coli] as the cause of diseases classified elsewhere; E86.0 Dehydration; E87.6 Hypokalemia; I35.0 Nonrheumatic aortic (valve) stenosis; I48.0 Paroxysmal atrial fibrillation; J44.9 Chronic obstructive pulmonary disease, unspecified; Z20.822 Contact with and (suspected) exposure to COVID-19; Z79.01 Long term (current) use of anticoagulants; Z83.3 Family history of diabetes mellitus; Z91.14 Patient's other noncompliance with medication regimen; Z91.19 Patient's noncompliance with other medical treatment and regimen; M19.90 Unspecified osteoarthritis, unspecified site; Z66 Do not resuscitate; Z68.27 Body mass index [BMI] 27.0-27.9, adult
CPT/HCPCS: 36415; 71045; 80053; 80307; 81001; 82553; 82565; 83605; 83735; 83880; 84145; 84443; 84484; 85025; 85610; 85730; 87040; 87077; 87086; 87186; 87205; 90471; 90686; 93306; 94618; 96374; 96375; J0696; J1160; J1650; J1940; J2270; J3370; J7040; U0003; 99285-25; G0378

== ENCOUNTER 2020-08-28 10:37 | Emergency (ER) | payer MEDICARE ==
[~2020-08-28] VITALS: Ht 165.1 cm; Wt 73.2 kg
[~2020-08-28 10:37] MED LIST changes: +APIX5TAB PO; +FURO40TA4 PO; +METO25TA4 PO
--- NOTE | 2020-08-28 10:52 | PHYS DOC ---
Past Medical History Past Medical History: A-Fib, CHF, COPD Past Surgical History: No Surgical History, Cholecystectomy, Other Additional Past Surgical Histo: R rotator cuff Smoking Status: Current Every Day Smoker Alcohol Use: None Drug Use: Marijuana General Adult EDM: Chief Complaint: ELBOW PROBLEM HPI: HPI: This is a pleasant 65-year-old female who presents emergency department with right elbow pain. Her pain started about 2 weeks ago when she fell and injured her elbow. She has an aching throbbing pain. Initially her pain was moderate and then improved and then today it worsened. She denies any numbness weakness or tingling. She denies any other injuries from the fall. She denies head injury or loss of consciousness. ROS: She denies any chest pain shortness of breath vomiting fevers chills headache. All other review of systems negative. ED course: 65-year-old female presenting with right elbow pain. Upon placing the patient on the monitor the patient is in A. fib with RVR. She reports following with [facility] and has been taking her medications regularly. When I recommended that we get blood work and start controlling her rate with IV medications she immediately did not want us to do this and was wanting to leave. Because she has her elbow pain, we offered to do an x-ray to evaluate her right elbow which she would like. X-ray shows an effusion without fracture or dislocation. Prominent osteophytes present. Synovial osteochondromatosis is a possibility. We will provide the patient with a sling and refer her to orthopedic surgery in 1 to 2 days patient understands the risks of disability and pain. Specifically I am concerned that the patient may have a dysrhythmia (i.e. worsening A. fib with RVR and or a change in rhythm ) which could lead to cardiac arrest, or disability. Patient understands the risks and benefits associated with this decision and is able to make medical decisions. We will have the patient have close follow-up and have her follow-up with her [facility] doctor today immediately upon discharge from the emergency department as an alternative option. The patient then left AMA. Heart Score: C/O Chest Pain: No Risk Factors: Risk Factors: DM, Current or recent (<one month) smoker, HTN, HLP, family history of CAD, obesity. Risk Scores: Score 0 - 3: 2.5% MACE over next 6 weeks - Discharge Home Score 4 - 6: 20.3% MACE over next 6 weeks - Admit for Clinical Observation Score 7 - 10: 72.7% MACE over next 6 weeks - Early Invasive Strategies Allergies: Allergies: Allergies Coded Allergies Type Severity Reaction Last Updated Verified No Known Drug Allergies 09/27/14 No Physical Exam: PE: Constitutional: Well developed, well nourished, no acute distress, non-toxic appearance. [] HENT: Normocephalic, atraumatic, bilateral external ears normal, oropharynx moist, no oral exudates, nose normal. [] Eyes: PERRLA, EOMI, conjunctiva normal, no discharge. [] Neck: Normal range of motion, no tenderness, supple, no stridor. [] Cardiovascular: Tachycardic heart rate with irregular rhythm. No murmurs rubs or gallops. Lungs & Thorax: Bilateral breath sounds clear to auscultation [] Abdomen: Bowel sounds normal, soft, no tenderness, no masses, no pulsatile masses. [] Skin: Warm, dry, no erythema, no rash. [] Back: No tenderness, no CVA tenderness. [] Extremities: No tenderness, no cyanosis, no clubbing, ROM intact, no edema. [] Neurologic: Alert and oriented X 3, normal motor function, normal sensory function, no focal deficits noted. [] Psychologic: Affect normal, judgement normal, mood normal. [] EKG: EKG: [] Radiology/Procedures: Radiology/Procedures: [] Course & Med Decision Making: Course & Med Decision Making Pertinent Labs and Imaging studies reviewed. (See chart for details) [] Dragon Disclaimer: Pito Disclaimer: This electronic medical record was generated, in whole or in part, using a voice recognition dictation system. Departure Departure Impression: Primary Impression: Elbow pain, right Disposition: ADMITTED INPATIENT Condition: STABLE Referrals: BENIGNO PARRA MD (PCP) Patient Instructions: Elbow Injury, Form - Rejection of Medical Treatment (AMA) Additional Instructions: EMERGENCY DEPARTMENT GENERAL DISCHARGE INSTRUCTIONS You are leaving AGAINST MEDICAL ADVICE. We are putting your elbow in a sling and referring you to orthopedic surgery within 1 to 2 days. We recommend you f ollow-up with your [facility] doctor today to be seen because your heart rate is fast and we are concerned that this might worsen which may lead to disability and/or pain. Return to the emergency department if you change your mind and we can provide medical care for you. Thank you for coming to [facility] Emergency Department (ED) today and trusting us with you care. We trust that you had a positive experience in our Emergency Department. If you wish to speak to the department management, you may call the Director at [phone]. Follow up is important in emergency/acute care visits. This condition should be evaluated by your primary care physician and any necessary consulting services for continued management within a few days (1-2) after discharge. Return to the emergency department if you have any new or concerning symptoms including but not limited to fever, chills, nausea, vomiting, intractable pain, any new rashes, chest pain, shortness of breath, uncontrolled bleeding, difficulty breathing, and/or vision loss. 1. Do you have a private Doctor? If you do not have a private doctor, please ask for a resource list of physicians or clinics that may be able to assist you with follow up care. 2. If a lab test or culture has been done and does not come back immediately, your results will be reviewed and you will be notified if you need a change in treatment. 3. Your care today has been supervised by a physician who is specially trained in emergency care. Many problems require more than one evaluation for a complete diagnosis and treatment. We recommend that you schedule your follow up appointment as recommended to ensure complete treatment of you illness or injury. If you are unable to obtain follow up care and continue to have a pr oblem, or if your condition worsens, we recommend that you return to the ED. 4. We are not able to safely determine your condition over the phone nor are we able to give sound medical advice over the phone. For these safety reasons, if you call for medical advice we will ask you to come to the ED for further evaluation. IF YOUR SYMPTOMS WORSEN OR NEW SYMPTOMS DEVELOP, OR YOU HAVE CONCERNS ABOUT YOUR CONDITION; OR IF YOUR CONDITION WORSENS WHILE YOU ARE WAITING FOR YOUR FOLLOW UP APPOINTMENT; EITHER CONTACT YOUR PRIMARY CARE DOCTOR, THE PHYSICIAN WHOSE NAME AND NUMBER YOU WERE GIVEN, OR RETURN TO THE ED IMMEDIATELY. ANGELA RAYGOZA MD Aug 28, 2020 10:52
--- NOTE | 2020-08-28 11:24 | RAD ---
Three-view right elbow study Clinical indications: Right elbow pain. FINDINGS: Joint effusion is seen. No acute fracture or dislocation or lytic process is evident. Promi nent osteophytes of the radial capitellar joint and trochlear ulnar joint are seen. There are multipl e radiopaque loose bodies seen especially posteriorly. The largest measures 17 mm. Synovial osteochon dromatosis is a possibility. IMPRESSION: No acute fracture. See discussion above. Electronically signed by: Jose Bazan MD (08/28/2020 11:22 AM) [id number]
[2020-08-28 11:39] VITALS: BP 150/110
[2020-08-28] MEDS ORDERED: HYDR-2761 PO ×2 (11:48→11:49)
== END 2020-08-28 11:45 | disposition left against medical advice (07) ==
LOC: ER 10:37
DX: M25.521 Pain in right elbow (principal); J44.9 Chronic obstructive pulmonary disease, unspecified; I48.20 Chronic atrial fibrillation, unspecified; I50.9 Heart failure, unspecified; F17.200 Nicotine dependence, unspecified, uncomplicated; F12.90 Cannabis use, unspecified, uncomplicated; Z90.49 Acquired absence of other specified parts of digestive tract; Z98.890 Other specified postprocedural states
CPT/HCPCS: 73080; 99282; A4565